=== PATIENT | female | born 1940 | race Caucasian/White ===

== ENCOUNTER 2016-05-12 12:20 | Emergency (ER) | payer MEDICARE, OTHER ==
--- NOTE | 2016-05-12 12:56 | EDM.PDOC ---
ED HPI ENT - General Chief Complaint: ENT Problem Stated Complaint: choking on food Time Seen by Provider: 05/12/16 12:42 Source of Information: Reports: Patient, EMS History Limitations: Reports: No limitations - History of Present Illness INITIAL COMMENTS - FREE TEXT/NARRATIVE: Patient presents with sensation of something stuck in her throat. She was eating a piece of chicken and it got stuck. For about two minutes she couldn't speak very well, kind of raspy, but was breathing okay. Someone performed the Heimlich maneuver on her but nothing came out. When EMS arrived, she was breathing and talking okay. They had her eat a few bites of ice cream which she swallowed okay. No vomiting. She still felt like it was stuck so she was brought to ER. She now says the sensation of something stuck is gradually lessening but still not normal. The stuck feeling is at the level of the upper sternum. She is breathing and talking just fine. - Related Data Allergies/ADRs: Allergies Allergy/AdvReac Type Severity Reaction Status Date / Time No Known Drug Allergies Allergy Cannot Verified 05/12/16 12:56 Remember ED ROS ENT - Review of Systems Review Of Systems: See Below Constitutional: Denies: fever, chills, weakness HEENT: Reports: Throat pain. Denies: Throat swelling, Vertigo, Vision change Respiratory: Denies: Shortness of Breath, Wheezing, Cough, Hemoptysis Cardiovascular: Denies: Chest pain, Syncope GI/Abdominal: Reports: Difficulty swallowing (she has some difficulty swallowing bigger pieces of food and tries to make sure she takes small bites and chews well.). Denies: Abdominal pain, Nausea, Vomiting : Reports: dysuria (she felt like she urinated a small piece of stone but only hurt a few minutes, this morning). Denies: flank pain Musculoskeletal: Reports: no symptoms Skin: Denies: cyanosis, jaundice, mottled, pallor, diaphoresis Neurological: Denies: Confusion, Dizziness, Headache, Seizure, Syncope, Trouble Speaking, Change in Speech Psychiatric: Denies: Agitation, Anxiety, Confusion ED EXAM, ENT - Physical Exam Exam: See Below Exam Limited By: No limitations General Appearance: alert, WD/WN, no apparent distress Eye Exam: bilateral eye: EOMI, normal inspection, PERRL Ears: normal external exam, hearing grossly normal Nose: normal inspection, no blood Mouth/Throat: Normal inspection, Normal gums, Normal lips, Normal oropharynx. No: Bleeding, Peritonsillar mass, Pharyngeal erythema, Throat swelling, Tongue swelling Head: atraumatic, normocephalic Neck: normal inspection, supple, non-tender, full range of motion Respiratory/Chest: no respiratory distress, lungs clear, normal breath sounds, no accessory muscle use. No: crackles, rales, rhonchi, wheezing, stridor Cardiovascular: regular rate, rhythm, no murmur GI/Abdominal: normal bowel sounds, soft, non tender, no organomegaly Back: CVA tenderness (R) (mild). No: CVA tenderness (L) Extremities: pedal edema (bilat, she is supposed to get her legs up 2-3 times a day for this) Neurological: alert, oriented, normal cognition, no motor/sensory deficits Psychiatric: normal affect, normal mood Skin: Warm, Dry, Intact, Normal color, No rash Course - Vital Signs Last Recorded V/S: Last Vital Signs Temp 96.8 F 05/12/16 12:38 Pulse 76 05/12/16 12:55 Resp 16 05/12/16 12:55 BP 164/83 H 05/12/16 12:55 Pulse Ox 98 05/12/16 12:55 - Orders/Labs/Meds Labs: Laboratory Tests 05/12/16 Range/Units 13:20 Specimen Type Urinvoid Urine Color Yellow (YELLOW) Urine Appearance Slightly cloudy H (CLEAR) Urine pH 6.5 (5.0-9.0) Ur Specific [place] 1.010 (1.005-1.030) Urine Protein Negative (NEGATIVE) mg/dL Urine Glucose (UA) Negative (NEGATIVE) mg/dL Urine Ketones Negative (NEGATIVE) mg/dL Urine Occult Blood Trace-intact H (NEGATIVE) Urine Nitrite Positive H (NEGATIVE) Urine Bilirubin Negative (NEGATIVE) Urine Urobilinogen 0.2 (0.2-1.0) E.U./dL Ur Leukocyte Esterase Small H (NEGATIVE) Urine RBC 0-5 /HPF Urine WBC 5-10 H /HPF Ur Epithelial Cells Occasional /LPF Amorphous Sediment Moderate H (0/HPF) /HPF Urine Bacteria Few (NONE TO FEW) /HPF - Re-Assessments/Exams Free Text/Narrative Re-Assessment/Exam: 05/12/16 13:03 Patient is stable with no noisy or raspy breathing. She drinks water for us okay. 05/12/16 13:11 She is eating apple sauce now without difficulty; she says it still feels a little funny in her throat. 05/12/16 14:00 Patient is comfortable but with slight throat discomfort. Eating and drinking okay. UA shows UTI; we discussed findings and treatment plan. Pt discharged in stable condition. Departure - Departure Time of Disposition: 14:01 Disposition: Home, Self-Care 01 Condition: good Clinical Impression: UTI (urinary tract infection) Qualifiers: Urinary tract infection type: site unspecified Hematuria presence: without hematuria Qualified Code(s): N39.0 - Urinary tract infection, site not specified Dysphagia Qualifiers: Dysphagia type: unspecified Qualified Code(s): R13.10 - Dysphagia, unspecified Forms: ED Department Discharge Additional Instructions: 1. Take the Cipro as directed. 2. Follow up with your PCP in 7-10 days for recheck; sooner if worsening. 3. Recheck immediately if any problems with breathing or choking.
[2016-05-12 15:29] VITALS: BP 164/82
== END 2016-05-12 14:25 | disposition home or self-care (01) ==
LOC: KA.ED 12:20
DX: N39.0 Urinary tract infection, site not specified (principal); R13.10 Dysphagia, unspecified
CPT/HCPCS: 81001; 87086; 87088; 87186; 99283; 99284

== ENCOUNTER 2016-08-24 04:55 | Emergency (ER) | payer MEDICARE, OTHER ==
[2016-08-24 05:06] VITALS: BP 135/49
--- NOTE | 2016-08-24 05:43 | EDM.PDOC ---
ED HPI GENERAL MEDICAL PROBLEM - General Chief Complaint: Lower Extremity Injury/Pain Stated Complaint: fall Time Seen by Provider: 08/24/16 05:26 Source of Information: Reports: Patient History Limitations: Reports: No Limitations - History of Present Illness INITIAL COMMENTS - FREE TEXT/NARRATIVE: Patient presents via ambulance with pain at left hip and low back. She couldn' t sleep and was up to get a cup of tea and fell in her kitchen. She thinks she just lost her balance but isn't lightheaded. She didn't hit her head, no LOC or vision change. She fell mostly on her back. She couldn't get up so called an ambulance. When they helped her up she had this pain so they thought she should probably get it checked out. She was able to walk with some help. She tells me she does have an old tailbone injury that still hurts sometimes. - Related Data Allergies Allergy/AdvReac Type Severity Reaction Status Date / Time Penicillins Allergy Cannot Verified 08/24/16 05:00 Remember Home Meds: Home Meds Aspirin 81 mg PO BRK 05/12/16 [History] Calcium Carbonate/Vitamin D3 [Calcium 600 + Vit D 200] 2 each PO DAILY 05/12/16 [History] Cholecalciferol (Vitamin D3) [Vitamin D3] 3,000 units PO DAILY 05/12/16 [History ] Docusate Sodium [Colace] 100 mg PO DAILY 05/12/16 [History] L.acid/L.casei/B.bif/B.leticia/Fos [Probiotic Blend Capsule] 1 cap PO DAILY [History] Losartan [Cozaar] 50 mg PO DAILY 05/12/16 [History] Omeprazole 20 mg PO BID 05/12/16 [History] Simvastatin [Zocor] 40 mg PO BEDTIME 05/12/16 [History] Acetaminophen [Tylenol Extra Strength] 1 tab PO Q8H PRN 08/24/16 [History] Calcium Carbonate [Tums] 200 mg PO ASDIRECTED PRN 08/24/16 [History] Dextromethorphan HBr [Tussin Cough] 15 mg PO ASDIRECTED PRN 08/24/16 [History] Nitroglycerin 0.4 mg SL Q5M PRN 08/24/16 [History] Social & Family History - Tobacco Use Smoking Status *Q: Never Smoker Second Hand Smoke Exposure: No - Caffeine Use Caffeine Use: Reports: Tea Other Caffeine Use: 2-3 drinks/day - Recreational Drug Use Recreational Drug Use: No Review of Systems - Review of Systems Review Of Systems: See Below Constitutional: Denies: Chills, Fever, Weakness Eyes: Denies: Vision Change Ears: Denies: Dizziness Nose: Denies: Epistaxis Mouth/Throat: Denies: Painful Swallowing Respiratory: Denies: Shortness of Breath, Cough Cardiovascular: Denies: Chest Pain, Lightheadedness, Syncope GI/Abdominal: Denies: Abdominal Pain, Nausea, Vomiting Genitourinary: Reports: Dysuria (the past couple days). Denies: Incontinence Musculoskeletal: Reports: Back Pain (low). Denies: Neck Pain, Shoulder Pain, Arm Pain, Hand Pain, Leg Pain, Foot Pain Skin: Denies: Cyanosis, Jaundice, Mottled, Pallor, Diaphoresis Neurological: Reports: Difficulty Walking (chronic; uses cane). Denies: Confusion, Dizziness, Headache, Seizure, Syncope, Trouble Speaking Psychiatric: Denies: Confusion ED EXAM, GENERAL - Physical Exam Exam: See Below Exam Limited By: No Limitations General Appearance: Alert, WD/WN, No Apparent Distress Eye Exam: Bilateral Eye: EOMI, Normal Inspection, PERRL Ears: Normal External Exam, Normal Canal, Hearing Grossly Normal, Normal TMs Nose: Normal Inspection, No Blood Throat/Mouth: Normal Inspection, Normal Lips, Normal Voice, No Airway Compromise Head: Atraumatic, Normocephalic Neck: Normal Inspection, Supple, Non-Tender, Full Range of Motion Respiratory/Chest: No Respiratory Distress, Lungs Clear, Normal Breath Sounds, No Accessory Muscle Use, Chest Non-Tender Cardiovascular: Regular Rate, Rhythm, No Murmur GI/Abdominal: Normal Bowel Sounds, Soft, No Organomegaly, Pelvis Stable, Tender (low/suprapubic) Back Exam: Paraspinal Tenderness (lumbar), Vertebral Tenderness (lumbosacral). No: CVA Tenderness (L), CVA Tenderness (R) Extremities: Normal Inspection, Normal Range of Motion Neurological: Alert, Oriented, CN II-XII Intact, Normal Cognition, No Motor/ Sensory Deficits Psychiatric: Normal Affect, Normal Mood Skin Exam: Warm, Dry, Intact, Normal Color, No Rash Course - Vital Signs Last Recorded V/S: Last Vital Signs Temp 98 F 08/24/16 05:03 Pulse 67 08/24/16 05:03 Resp 18 08/24/16 05:03 BP 135/49 L 08/24/16 05:03 Pulse Ox 97 08/24/16 05:03 - Orders/Labs/Meds Orders: Active Orders 24 hr Category Date Time Status Hip Min 2V or 3V w Pelvis Lt [CR] Stat Exams 08/24/16 05:12 Ordered Lumbar Spine 2 or 3V [CR] Stat Exams 08/24/16 05:33 Ordered - Re-Assessments/Exams Free Text/Narrative Re-Assessment/Exam: 08/24/16 06:05 Patient back from xray and feeling okay. Xrays look okay to me and will get rad report. 08/24/16 06:52 Xray report states no acute fracture. UA does not indicate a UTI but will culture to be sure. Discussed findings and plan with patient and she is discharged in stable condition. Departure - Departure Time of Disposition: 06:45 Disposition: Home, Self-Care 01 Condition: Good Clinical Impression: Low back pain Qualifiers: Chronicity: acute Back pain laterality: left Sciatica presence: without sciatica Qualified Code(s): M54.5 - Low back pain - Discharge Information Forms: ED Department Discharge Additional Instructions: 1. Use precautions to avoid falling. 2. Follow up with your PCP in 2-3 days. 3. We are culturing the urine and someone will let you know if it indicates a UTI. - My Orders Last 24 Hours: My Active Orders 08/24/16 05:12 Hip Min 2V or 3V w Pelvis Lt [CR] Stat 08/24/16 05:33 Lumbar Spine 2 or 3V [CR] Stat - Assessment/Plan Last 24 Hours: My Active Orders 08/24/16 05:12 Hip Min 2V or 3V w Pelvis Lt [CR] Stat 08/24/16 05:33 Lumbar Spine 2 or 3V [CR] Stat
== END 2016-08-24 07:23 | disposition home or self-care (01) ==
LOC: KA.ED 04:55
DX: M54.5 Low back pain (principal); Z88.0 Allergy status to penicillin; Z79.82 Long term (current) use of aspirin; Z79.899 Other long term (current) drug therapy
CPT/HCPCS: 72100; 81001; 87086; 99283; 99284

== ENCOUNTER 2016-09-03 19:30 | Emergency (ER) | payer MEDICARE, OTHER ==
--- NOTE | 2016-09-03 19:57 | EDM.PDOC ---
ED HPI GENERAL MEDICAL PROBLEM - General Chief Complaint: General Stated Complaint: FALL Time Seen by Provider: 09/03/16 19:34 Source of Information: Reports: Patient, EMS, EMS Notes Reviewed History Limitations: Reports: No Limitations - History of Present Illness INITIAL COMMENTS - FREE TEXT/NARRATIVE: PT STATES SHE FELL ASLEPP AND FELL OUT OF CHAIR ONTO RUG FLOOR. DIDN NOT FEEL ANY PAIN BUT WAS AFRAID TO MOVE AND GET UP SO CALLED 911. [facility] RESPONDED AND TRANSPORTED PT HERE. NO SIGNS OF TRAUMA. DENIES LOC, HEAD INJURY, OR ANY DIFFERENT PAIN THAN USUAL. Onset: Today Duration: Hour(s): Location: Reports: Face, Back Quality: Reports: Same as Previous Episode Severity: Mild Improves with: Reports: None Worsens with: Reports: None Associated Symptoms: Reports: No Other Symptoms - Related Data Allergies Allergy/AdvReac Type Severity Reaction Status Date / Time Penicillins Allergy Cannot Verified 09/03/16 19:35 Remember Home Meds: Home Meds Aspirin 81 mg PO BRK 05/12/16 [History] Calcium Carbonate/Vitamin D3 [Calcium 600 + Vit D 200] 2 each PO DAILY 05/12/16 [History] Cholecalciferol (Vitamin D3) [Vitamin D3] 3,000 units PO DAILY 05/12/16 [History ] Docusate Sodium [Colace] 100 mg PO DAILY 05/12/16 [History] L.acid/L.casei/B.bif/B.leticia/Fos [Probiotic Blend Capsule] 1 cap PO DAILY [History] Losartan [Cozaar] 50 mg PO DAILY 05/12/16 [History] Omeprazole 20 mg PO BID 05/12/16 [History] Simvastatin [Zocor] 40 mg PO BEDTIME 05/12/16 [History] Acetaminophen [Tylenol Extra Strength] 1 tab PO Q8H PRN 08/24/16 [History] Calcium Carbonate [Tums] 200 mg PO ASDIRECTED PRN 08/24/16 [History] Dextromethorphan HBr [Tussin Cough] 15 mg PO ASDIRECTED PRN 08/24/16 [History] Nitroglycerin 0.4 mg SL Q5M PRN 08/24/16 [History] Past Medical History HEENT History: Reports: Cataract, Impaired Vision Cardiovascular History: Reports: High Cholesterol, Hypertension Respiratory History: Reports: Bronchitis, Recurrent Gastrointestinal History: Reports: GERD Genitourinary History: Reports: Other (See Below) Other Genitourinary History: prolapsed bladder Musculoskeletal History: Reports: Osteoarthritis, Other (See Below) Other Musculoskeletal History: L shoulder ?torn cuff. walker use. knee pain - Infectious Disease History Infectious Disease History: Reports: Chicken Pox - Past Surgical History GI Surgical History: Reports: Appendectomy, Cholecystectomy, Colonoscopy Female Surgical History: Reports: Hysterectomy, Salpingo-Oophorectomy Social & Family History - Tobacco Use Smoking Status *Q: Never Smoker Second Hand Smoke Exposure: No - Caffeine Use Caffeine Use: Reports: Tea Other Caffeine Use: 2-3 drinks/day - Recreational Drug Use Recreational Drug Use: No ED ROS GENERAL - Review of Systems Review Of Systems: ROS reveals no pertinent complaints other than HPI. Constitutional: Reports: No Symptoms HEENT: Reports: No Symptoms Respiratory: Reports: No Symptoms Cardiovascular: Reports: No Symptoms Endocrine: Reports: No Symptoms GI/Abdominal: Reports: No Symptoms : Reports: No Symptoms Musculoskeletal: Reports: Back Pain (of chronic nature) Skin: Reports: No Symptoms Neurological: Reports: No Symptoms Psychiatric: Reports: No Symptoms Hematologic/Lymphatic: Reports: No Symptoms Immunologic: Reports: No Symptoms ED EXAM, GENERAL - Physical Exam Exam: See Below Free Text/Narrative:: NO SIGNS OF TRAUMA Exam Limited By: No Limitations General Appearance: Alert, WD/WN, No Apparent Distress Eye Exam: Bilateral Eye: Normal Inspection Ears: Normal External Exam Nose: Normal Inspection, No Blood Throat/Mouth: Normal Inspection, Normal Oropharynx, No Airway Compromise Head: Atraumatic, Normocephalic Neck: Normal Inspection, Supple, Non-Tender, Full Range of Motion Respiratory/Chest: No Respiratory Distress, Lungs Clear, Normal Breath Sounds, No Accessory Muscle Use, Chest Non-Tender Cardiovascular: Regular Rate, Rhythm, No Murmur GI/Abdominal: Normal Bowel Sounds, Soft, Non-Tender Back Exam: Decreased Range of Motion (OF CHRONIC NATURE) Extremities: Normal Inspection, Non-Tender Neurological: Alert, Oriented, CN II-XII Intact, Normal Cognition, No Motor/ Sensory Deficits Psychiatric: Normal Affect, Normal Mood Skin Exam: Warm, Dry, Intact, Normal Color, No Rash Lymphatic: No Adenopathy Course - Vital Signs Last Recorded V/S: Last Vital Signs Temp 97.9 F 09/03/16 19:37 Pulse 76 07/28/17 19:37 Resp 18 09/03/16 19:37 BP 145/56 H 09/03/16 19:37 Pulse Ox 97 09/03/16 19:37 - Orders/Labs/Meds Orders: Active Orders 24 hr Category Date Time Status Accu Check [Blood Glucose Check, Bedside] [RC] ONETIME Care 09/03/16 19:48 Ordered Labs: Laboratory Tests 09/03/16 Range/Units 19:43 POC Glucose 106 (74-106) mg/dl - Re-Assessments/Exams Free Text/Narrative Re-Assessment/Exam: 09/03/16 19:57 PT AFEBRILE, NONTOXIC APPEARING, VSS. [facility] WILL TRANSPORT HOME Departure - Departure Time of Disposition: 19:58 Disposition: Home, Self-Care 01 Condition: Good Clinical Impression: Low back pain Qualifiers: Chronicity: chronic Back pain laterality: bilateral Sciatica presence: without sciatica Qualified Code(s): M54.5 - Low back pain; G89.29 - Other chronic pain Fall from chair Qualifiers: Encounter type: initial encounter Qualified Code(s): W07.XXXA - Fall from chair , initial encounter - Discharge Information Instructions: Fall Prevention in the Home, [id number], Chronic Back Pain Additional Instructions: FOLLOW UP WITH YOUR PCP IN NEXT 2-3 DAYS. RETURN TO ER SOONER IF SYMPTOMS CONTINUE - My Orders Last 24 Hours: My Active Orders 09/03/16 19:48 Accu Check [Blood Glucose Check, Bedside] [RC] ONETIME - Assessment/Plan Last 24 Hours: My Active Orders 09/03/16 19:48 Accu Check [Blood Glucose Check, Bedside] [RC] ONETIME Assessment:: FALL Plan: F/U WITH PCP
[2016-09-04 01:16] VITALS: BP 145/56
== END 2016-09-03 20:05 | disposition home or self-care (01) ==
LOC: KA.ED 19:30
DX: M54.5 Low back pain (principal); G89.29 Other chronic pain; I10 Essential (primary) hypertension; E78.00 Pure hypercholesterolemia, unspecified; K21.9 Gastro-esophageal reflux disease without esophagitis; M19.90 Unspecified osteoarthritis, unspecified site; Z90.49 Acquired absence of other specified parts of digestive tract; Z90.710 Acquired absence of both cervix and uterus; Z88.0 Allergy status to penicillin; Z79.82 Long term (current) use of aspirin; W07.XXXA Fall from chair, initial encounter
CPT/HCPCS: 82962; 99283

== ENCOUNTER 2016-11-28 21:55 | Emergency (ER) | payer MEDICARE, OTHER ==
[2016-11-28] MEDS ORDERED: GI Cocktail 45 ML BOTTLE PO ONE ×2 (22:10→22:26)
[2016-11-28] MEDS ORDERED: GI Cocktail 45 ML BOTTLE ONE ×2 (22:26→23:18)
--- NOTE | 2016-11-28 22:40 | EDM.PDOC ---
ED HPI GENERAL MEDICAL PROBLEM - General Chief Complaint: General Stated Complaint: PILL STUCK IN THROAT Time Seen by Provider: 11/28/16 22:15 Source of Information: Reports: Patient History Limitations: Reports: No Limitations - History of Present Illness INITIAL COMMENTS - FREE TEXT/NARRATIVE: 76 YO CAPRICE presents to ER by EMS after taking her calcium pill tonight and having the sensation that it is still stuck in her throat. Pt points to her sternal notch and states that this is where she feels the discomfort. Pt denies any shortness of breath, Pt denies any chest pain, pt denies any dysphagia. No episodes of nausea/vomiting. Onset Date: 11/28/16 Onset Time: 21:00 Location: Reports: Neck Quality: Reports: Other (scratchy) Severity: Mild Improves with: Reports: None Worsens with: Reports: None Associated Symptoms: Reports: No Other Symptoms - Related Data Allergies Allergy/AdvReac Type Severity Reaction Status Date / Time Penicillins Allergy Cannot Verified 11/28/16 22:45 Remember Home Meds: Home Meds Aspirin 81 mg PO BRK 05/12/16 [History] Calcium Carbonate/Vitamin D3 [Calcium 600 + Vit D 200] 2 each PO DAILY 05/12/16 [History] Cholecalciferol (Vitamin D3) [Vitamin D3] 3,000 units PO DAILY 05/12/16 [History ] Docusate Sodium [Colace] 100 mg PO DAILY 05/12/16 [History] L.acid/L.casei/B.bif/B.leticia/Fos [Probiotic Blend Capsule] 1 cap PO DAILY [History] Losartan [Cozaar] 50 mg PO DAILY 05/12/16 [History] Omeprazole 20 mg PO BID 05/12/16 [History] Simvastatin [Zocor] 40 mg PO BEDTIME 05/12/16 [History] Acetaminophen [Tylenol Extra Strength] 1 tab PO Q8H PRN 08/24/16 [History] Calcium Carbonate [Tums] 200 mg PO ASDIRECTED PRN 08/24/16 [History] Dextromethorphan HBr [Tussin Cough] 15 mg PO ASDIRECTED PRN 08/24/16 [History] Nitroglycerin 0.4 mg SL Q5M PRN 08/24/16 [History] GI Cocktail 5 ml PO ONETIME #120 bottle 11/28/16 [Rx] Past Medical History HEENT History: Reports: Cataract, Impaired Vision Cardiovascular History: Reports: High Cholesterol, Hypertension Respiratory History: Reports: Bronchitis, Recurrent Gastrointestinal History: Reports: GERD Genitourinary History: Reports: Other (See Below) Other Genitourinary History: prolapsed bladder Musculoskeletal History: Reports: Osteoarthritis, Other (See Below) Other Musculoskeletal History: L shoulder ?torn cuff. walker use. knee pain - Infectious Disease History Infectious Disease History: Reports: Chicken Pox - Past Surgical History GI Surgical History: Reports: Appendectomy, Cholecystectomy, Colonoscopy Female Surgical History: Reports: Hysterectomy, Salpingo-Oophorectomy Social & Family History - Tobacco Use Smoking Status *Q: Never Smoker Second Hand Smoke Exposure: No - Caffeine Use Caffeine Use: Reports: Tea Other Caffeine Use: 2-3 drinks/day - Recreational Drug Use Recreational Drug Use: No ED ROS GENERAL - Review of Systems Review Of Systems: See Below Constitutional: Reports: No Symptoms HEENT: Reports: Throat Pain Respiratory: Reports: No Symptoms Cardiovascular: Reports: No Symptoms Endocrine: Reports: No Symptoms GI/Abdominal: Reports: No Symptoms : Reports: No Symptoms Musculoskeletal: Reports: No Symptoms Skin: Reports: No Symptoms Neurological: Reports: No Symptoms Psychiatric: Reports: No Symptoms Hematologic/Lymphatic: Reports: No Symptoms Immunologic: Reports: No Symptoms ED EXAM, GENERAL - Physical Exam Exam: See Below Exam Limited By: No Limitations General Appearance: Alert, WD/WN, No Apparent Distress Ears: Normal External Exam, Normal Canal, Hearing Grossly Normal, Normal TMs Nose: Normal Inspection, Normal Mucosa, No Blood Throat/Mouth: Normal Inspection, Normal Lips, Normal Teeth, Normal Gums, Normal Oropharynx, Normal Voice, No Airway Compromise Head: Atraumatic, Normocephalic Neck: Normal Inspection, Supple, Non-Tender, Full Range of Motion Respiratory/Chest: No Respiratory Distress, Lungs Clear, Normal Breath Sounds, No Accessory Muscle Use, Chest Non-Tender Cardiovascular: Normal Peripheral Pulses, Regular Rate, Rhythm, No Edema, No Gallop, No JVD, No Murmur, No Rub GI/Abdominal: Normal Bowel Sounds, Soft, Non-Tender, No Organomegaly, No Distention, No Abnormal Bruit, No Mass Back Exam: Normal Inspection, Full Range of Motion, NT Extremities: Normal Inspection, Normal Range of Motion, Non-Tender, Normal Capillary Refill, No Pedal Edema Neurological: Alert, Oriented, CN II-XII Intact, Normal Cognition, Normal Gait, Normal Reflexes, No Motor/Sensory Deficits Psychiatric: Normal Affect, Normal Mood Skin Exam: Warm, Dry, Intact, Normal Color, No Rash Lymphatic: No Adenopathy Course - Orders/Labs/Meds Meds: Medications Discontinued Medications Generic Name Dose Route Start Last Admin Trade Name Freq PRN Reason Stop Dose Admin Al Hydroxide/Mg Hydroxide Confirm 11/28/16 22:26 Gi Cocktail Administered 11/28/16 22:27 Dose 45 ml .ROUTE .STK-MED ONE Departure - Departure Time of Disposition: 22:47 Disposition: Home, Self-Care 01 Condition: Good Clinical Impression: Sensation of foreign body in esophagus - Discharge Information Prescriptions: GI Cocktail 5 ml PO ONETIME #120 bottle Instructions: Swallowed Foreign Body, Adult, [id number] Referrals: PCP,Not In Area [Primary Care Provider] - - Assessment/Plan Assessment:: 1. foreign body sensation in throat- Pt reports symptoms resolved Plan: 1. discharge home 2. gi cocktail with viscous lidocaine PRN 3. follow up with PCP for further evaluation and treatment 4. return to ER for worsening symptoms
[2016-11-28 22:45] VITALS: BP 151/81
== END 2016-11-28 23:30 | disposition home or self-care (01) ==
LOC: KA.ED 21:55
DX: R09.89 Other specified symptoms and signs involving the circulatory and respiratory systems (principal); I10 Essential (primary) hypertension; Z88.0 Allergy status to penicillin; Z79.82 Long term (current) use of aspirin; Z79.899 Other long term (current) drug therapy
CPT/HCPCS: 99283; A9270

== ENCOUNTER 2016-12-09 06:26 | Emergency (ER) | payer MEDICARE, OTHER ==
[2016-12-09 07:02] VITALS: BP 135/77
--- NOTE | 2016-12-09 07:32 | EDM.PDOC ---
ED HPI GENERAL MEDICAL PROBLEM - General Chief Complaint: Abdominal Pain Stated Complaint: Abdominal Pain Time Seen by Provider: 12/09/16 07:25 Source of Information: Reports: Patient History Limitations: Reports: No Limitations - History of Present Illness INITIAL COMMENTS - FREE TEXT/NARRATIVE: Patient is a 76-year-old female who presents to the emergency department today via EMS for complaint of lower abdominal pain. Pain was said to begin yesterday about noon following her consuming a hamburger. The patient thinks it might be her prolapsed uterus, however, she does have a history of a hysterectomy. She describes minimal urinary incontinence with cough, and suspect she is speaking of her bladder. Patient denies fever, nausea, vomiting , diarrhea, any fall or trauma, chest pain, or shortness of breath. Onset: Gradual Onset Date: 12/08/16 Duration: Day(s): Location: Reports: Abdomen Quality: Reports: Pressure Severity: Mild Improves with: Reports: None Worsens with: Reports: None Associated Symptoms: Reports: No Other Symptoms Right Lower Abdominal Pain Score (Numeric/FACES): 3 - Related Data Allergies Allergy/AdvReac Type Severity Reaction Status Date / Time Penicillins Allergy Cannot Verified 12/09/16 07:04 Remember Home Meds: Home Meds Aspirin 81 mg PO BRK 05/12/16 [History] Calcium Carbonate/Vitamin D3 [Calcium 600 + Vit D 200] 2 each PO DAILY 05/12/16 [History] Cholecalciferol (Vitamin D3) [Vitamin D3] 3,000 units PO DAILY 05/12/16 [History ] Docusate Sodium [Colace] 100 mg PO DAILY PRN 05/12/16 [History] L.acid/L.casei/B.bif/B.leticia/Fos [Probiotic Blend Capsule] 1 cap PO DAILY [History] Losartan [Cozaar] 50 mg PO DAILY 05/12/16 [History] Omeprazole 20 mg PO BID 05/12/16 [History] Simvastatin [Zocor] 40 mg PO BEDTIME 05/12/16 [History] Acetaminophen [Tylenol Extra Strength] 1 tab PO Q8H PRN 08/24/16 [History] Calcium Carbonate [Tums] 200 mg PO ASDIRECTED PRN 08/24/16 [History] Nitroglycerin 0.4 mg SL Q5M PRN 08/24/16 [History] Past Medical History HEENT History: Reports: Cataract, Epistaxis, Impaired Vision Cardiovascular History: Reports: Angina, High Cholesterol, Hypertension Respiratory History: Reports: Bronchitis, Recurrent Gastrointestinal History: Reports: Diverticulosis, GERD Genitourinary History: Reports: Other (See Below) Other Genitourinary History: prolapsed bladder Musculoskeletal History: Reports: Osteoarthritis, Other (See Below) Other Musculoskeletal History: L shoulder ?torn cuff. walker use. knee pain Endocrine/Metabolic History: Reports: Diabetes, Type II - Infectious Disease History Infectious Disease History: Reports: Chicken Pox, Mumps - Past Surgical History HEENT Surgical History: Reports: Cataract Surgery GI Surgical History: Reports: Appendectomy, Cholecystectomy, Colonoscopy Female Surgical History: Reports: Hysterectomy, Salpingo-Oophorectomy Social & Family History - Family History Family Medical History: Noncontributory - Tobacco Use Smoking Status *Q: Never Smoker Second Hand Smoke Exposure: No - Caffeine Use Caffeine Use: Reports: Tea Other Caffeine Use: 2-3 drinks/day - Recreational Drug Use Recreational Drug Use: No ED ROS GENERAL - Review of Systems Review Of Systems: ROS reveals no pertinent complaints other than HPI. Constitutional: Reports: No Symptoms HEENT: Reports: No Symptoms Respiratory: Reports: No Symptoms Cardiovascular: Reports: No Symptoms Endocrine: Reports: No Symptoms GI/Abdominal: Reports: Abdominal Pain : Reports: Incontinence Musculoskeletal: Reports: No Symptoms Skin: Reports: No Symptoms Neurological: Reports: No Symptoms Psychiatric: Reports: No Symptoms Hematologic/Lymphatic: Reports: No Symptoms Immunologic: Reports: No Symptoms ED EXAM, GI/ABD - Physical Exam Exam: See Below Exam Limited By: No Limitations General Appearance: Alert, WD/WN, No Apparent Distress Throat/Mouth: Normal Inspection, Normal Oropharynx, No Airway Compromise Head: Atraumatic, Normocephalic Respiratory/Chest: No Respiratory Distress, Lungs Clear, Normal Breath Sounds, No Accessory Muscle Use, Chest Non-Tender Cardiovascular: Regular Rate, Rhythm, No Murmur GI/Abdominal Exam: Normal Bowel Sounds, Soft, Tender (minimally suprapubic). No : Guarding, Rigid, Rebound (Female) Exam: Other (Patient has prolapsed tissue extending out of vagina when she is a squatting position on the urinal. Complete reduction when she lies flat.) Back Exam: Normal Inspection. No: CVA Tenderness (L), CVA Tenderness (R) Extremities: Pedal Edema (of chronic nature) Neurological: Alert, Oriented, Normal Cognition Psychiatric: Normal Affect, Normal Mood Skin Exam: Warm, Dry, Intact, Normal Color, No Rash Lymphatic: No Adenopathy Course - Vital Signs Last Recorded V/S: Last Vital Signs Temp 99.0 F 12/09/16 06:57 Pulse 77 12/09/16 06:57 Resp 18 12/09/16 06:57 BP 135/77 12/09/16 06:57 Pulse Ox 96 12/09/16 06:57 - Orders/Labs/Meds Orders: Active Orders 24 hr Category Date Time Status CBC WITH AUTO DIFF [HEME] Stat Lab 12/09/16 07:25 Ordered COMPREHENSIVE METABOLIC PN,CMP [CHEM] Stat Lab 12/09/16 07:25 Ordered CULTURE URINE [RM] Stat Lab 12/09/16 07:25 Uncollected UA W/MICROSCOPIC [URIN] Stat Lab 12/09/16 07:25 Uncollected - Re-Assessments/Exams Free Text/Narrative Re-Assessment/Exam: 12/09/16 08:10 Patient afebrile, nontoxic appearing, vital signs stable. In depth discussion with the patient to emphasize the need to keep herself clean, change clothes and incontinence pad and care for self better. Patient states that she's been told by several providers that she may be acquiring fci care at this point. She is adamant about not going to a fci. Emphasize choice was hers and she needed to take better care of herself. Will have her follow-up at local clinic for recheck in 3-5 days. Departure - Departure Time of Disposition: 08:12 Disposition: Home, Self-Care 01 Condition: Good Clinical Impression: Urinary tract infection Qualifiers: Urinary tract infection type: acute cystitis Hematuria presence: without hematuria Qualified Code(s): N30.00 - Acute cystitis without hematuria Abdominal pain Qualifiers: Abdominal location: lower abdomen, unspecified Qualified Code(s): R10.30 - Lower abdominal pain, unspecified - Discharge Information Instructions: Urinary Incontinence, Urinary Tract Infection, Adult Referrals: PCP,Not In Area [Primary Care Provider] - Additional Instructions: Follow-up at the [facility] in [place] in the next 3-5 days for recheck. Return to ER sooner if symptoms continue or worsen. - My Orders Last 24 Hours: My Active Orders 12/09/16 07:25 CBC WITH AUTO DIFF [HEME] Stat COMPREHENSIVE METABOLIC PN,CMP [CHEM] Stat CULTURE URINE [RM] Stat UA W/MICROSCOPIC [URIN] Stat - Assessment/Plan Last 24 Hours: My Active Orders 12/09/16 07:25 CBC WITH AUTO DIFF [HEME] Stat COMPREHENSIVE METABOLIC PN,CMP [CHEM] Stat CULTURE URINE [RM] Stat UA W/MICROSCOPIC [URIN] Stat Assessment:: UTI Plan: Follow up at clinic in [place] in 2-3 days.
[2016-12-09 07:40] LABS: CHLORIDE,CL 104 mmol/L (98-115); SODIUM,NA 138 mmol/L (136-145)
[2016-12-09] MEDS ORDERED: cefTRIAXone 1 GM Vial IVPUSH ONE (08:06)
== END 2016-12-09 09:55 | disposition home or self-care (01) ==
LOC: KA.ED 06:26
DX: N30.00 Acute cystitis without hematuria (principal); I10 Essential (primary) hypertension; E11.9 Type 2 diabetes mellitus without complications; Z88.0 Allergy status to penicillin; Z79.82 Long term (current) use of aspirin; Z79.899 Other long term (current) drug therapy
CPT/HCPCS: 80053; 81001; 85025; 87086; 96374; 99284; J0696

== ENCOUNTER 2017-06-21 11:33 | Emergency (ER) | payer MEDICARE, OTHER ==
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
[2017-06-21 13:34] VITALS: BP 170/69
== END 2017-06-21 13:25 | disposition home or self-care (01) ==
LOC: KA.ED 11:33
DX: S16.1XXA Strain of muscle, fascia and tendon at neck level, initial encounter (principal); I10 Essential (primary) hypertension; E11.9 Type 2 diabetes mellitus without complications; Z88.0 Allergy status to penicillin; Z79.899 Other long term (current) drug therapy; V89.2XXA Person injured in unspecified motor-vehicle accident, traffic, initial encounter
CPT/HCPCS: 72040; 99284

== ENCOUNTER 2018-07-21 14:27 | Emergency (ER) | payer MEDICARE, MEDICAID ==
--- NOTE | 2018-07-21 15:04 | EDM.PDOC ---
ED HPI GENERAL MEDICAL PROBLEM - General Chief Complaint: Abdominal Pain Stated Complaint: LOWER R ABD PAIN Time Seen by Provider: 07/21/18 14:35 Source of Information: Reports: Patient, EMS History Limitations: Reports: No Limitations - History of Present Illness INITIAL COMMENTS - FREE TEXT/NARRATIVE: Patient presents from home via EMS for acute RLQ abd. pain starting this afternoon at 1330. She notes it started suddenly did not radiate, lasted for only a brief while, once EMS arrived to her house the pain has subsided. She denies any associating symptoms such as CP, SOB, symptoms, Back or flank pain , fevers, chills, or body aches. Currently her pain is 0/10 at rest. She notes being seen in [facility] where she received labs and xray for this type of pain and told her it was dehydration as the potential cause. RLQ Pain Score (Numeric/FACES): 4 - Related Data Allergies Allergy/AdvReac Type Severity Reaction Status Date / Time Penicillins Allergy Cannot Verified 07/21/18 14:57 Remember Home Meds: Home Meds Aspirin 81 mg PO BRK 05/12/16 [History] Cholecalciferol (Vitamin D3) [Vitamin D3] 3,000 units PO DAILY 05/12/16 [History ] Docusate Sodium [Colace] 100 mg PO BID PRN 05/12/16 [History] L.acid/L.casei/B.bif/B.leticia/Fos [Probiotic Blend Capsule] 1 cap PO DAILY [History] Omeprazole 20 mg PO BID 05/12/16 [History] Nitroglycerin 0.4 mg SL Q5M PRN 08/24/16 [History] Acetaminophen [Tylenol] 650 mg PO Q4H PRN 07/21/18 [History] Calcium Carbonate 500 mg PO BID 07/21/18 [History] Calcium Carbonate [Calcium] 500 mg PO ASDIRECTED PRN 07/21/18 [History] Losartan Potassium 25 mg PO DAILY 07/21/18 [History] Nystatin 1 applic TP DAILY PRN 07/21/18 [History] Nystatin [Nystatin Crm] 1 applic TOP TID PRN 07/21/18 [History] Simvastatin 20 mg PO BEDTIME 07/21/18 [History] Past Medical History HEENT History: Reports: Cataract, Epistaxis, Impaired Vision Cardiovascular History: Reports: Angina, High Cholesterol, Hypertension Respiratory History: Reports: Bronchitis, Recurrent Gastrointestinal History: Reports: Diverticulosis, GERD Genitourinary History: Reports: Other (See Below) (wwww) Other Genitourinary History: prolapsed bladder Musculoskeletal History: Reports: Osteoarthritis, Other (See Below) Other Musculoskeletal History: L shoulder ?torn cuff. walker use. knee pain Endocrine/Metabolic History: Reports: Diabetes, Type II - Infectious Disease History Infectious Disease History: Reports: Chicken Pox, Mumps - Past Surgical History HEENT Surgical History: Reports: Cataract Surgery GI Surgical History: Reports: Appendectomy, Cholecystectomy, Colonoscopy Female Surgical History: Reports: Hysterectomy, Salpingo-Oophorectomy Social & Family History - Family History Family Medical History: Noncontributory - Tobacco Use Smoking Status *Q: Never Smoker - Tobacco Core Measures Tobacco Use/Smoking Within Last 30 Days: No - Caffeine Use Caffeine Use: Reports: Tea Other Caffeine Use: 2-3 drinks/day - Alcohol Use Alcohol Use History: No - Recreational Drug Use Recreational Drug Use: No ED ROS GENERAL - Review of Systems Review Of Systems: See Below Constitutional: Reports: No Symptoms HEENT: Reports: No Symptoms Respiratory: Reports: No Symptoms Cardiovascular: Reports: No Symptoms Endocrine: Reports: No Symptoms GI/Abdominal: Reports: Abdominal Pain, Other (bowel movements regular) : Reports: No Symptoms Musculoskeletal: Reports: No Symptoms Skin: Reports: No Symptoms Neurological: Reports: No Symptoms Psychiatric: Reports: No Symptoms Hematologic/Lymphatic: Reports: No Symptoms ED EXAM, GI/ABD - Physical Exam Exam: See Below Exam Limited By: No Limitations General Appearance: Alert, WD/WN, No Apparent Distress Ears: Normal External Exam, Normal Canal Nose: Normal Inspection, Normal Mucosa Throat/Mouth: Normal Inspection, Normal Lips, Normal Oropharynx Head: Atraumatic, Normocephalic Neck: Normal Inspection, Supple, Non-Tender, Full Range of Motion Respiratory/Chest: No Respiratory Distress, Lungs Clear, Normal Breath Sounds Cardiovascular: Normal Peripheral Pulses, Regular Rate, Rhythm GI/Abdominal Exam: Normal Bowel Sounds, No Organomegaly, No Distention, No Mass , Tender, Other (TTP to the RLQ, zero pain at rest.) Back Exam: Normal Inspection, Full Range of Motion Extremities: Normal Inspection, Normal Range of Motion, Non-Tender, Normal Capillary Refill Neurological: Alert, Oriented, No Motor/Sensory Deficits Psychiatric: Normal Affect, Normal Mood Skin Exam: Warm, Dry, Intact, No Rash Lymphatic: No Adenopathy Course - Vital Signs Text/Narrative:: abdominal pain work up, started acutely at 1:30, has had this same pain in the past, she told the doctors blamed it on dehydration as she does not drink much water, patient is very comfortable on arrival to ED, hold off on strong pain meds, 0/10 pain, but pain is reproducible on exam exquisitely to the RLQ no radiation, describes it as sharp. No associating factors. BM normal large amount last night, denies symptoms, CP, SOB, back pain, fever, c/n/v/d. abdominal labs including UA pending. she notes having xray done in the past, xray results obtained from 07/08/18. 1545: labs WNL, WBC normal, no anemia, Cr normal, Lipase normal, lytes normal, UA negative besides trace blood (cath was obtained by straight cath UA patient was unable to void. due to her repeat visit for the same complaint, severe acute onset pain, will obtain CT scan to look for diverticulitis other acute abdominal processes abscess, hernia due to multi. previous abd surgeries such as (appendectomy, cholecystectomy, hysterectomy), obstruction, neoplasm, pancreatitis, ischemic bowel, renal calculi ( due to the fact pain was short and severe RLQ and resolved, may have passed calculi or have more stones in renal pelvis. Other differentials note likely: mesenteric ischemia no hx of afib, HR is regular, on ASA. 500 ml bolus ordered, no hx of CHF, to help with contrast, patient notes not drinking adequate amounts of water. she continues to be pain free, no symptoms during ED visit, she is even singing in the room random songs. 1430 Reason for the delay in CT scan, the machine had to be restarted. Patient is lying in bed comfortable, no complaints. 1516: Ct results show uncomplicated sigmoid diverticulitis, normal WBC, neg labs , pain is controlled, no fevers or peritoneal signs, outpatient PO abx and close follow up in the clinic with her PCP on tuesday, or return if pain worsens throughout the weekend. cipro and flagyl scripts filled until she get can get them filled tuesday evening , she will have enough with today until tuesday evening. FDA black box warning given with cipro to patient, she understands. course of cipro 500 mg BID for one week and flagyl 500 mg TID for one week. Last Recorded V/S: Last Vital Signs Temp 97.9 F 07/21/18 14:30 Pulse 81 07/21/18 15:39 Resp 16 07/21/18 15:39 BP 146/85 H 07/21/18 15:39 Pulse Ox 98 07/21/18 15:39 - Orders/Labs/Meds Labs: Laboratory Tests 07/21/18 07/21/18 07/21/18 Range/Units 14:50 14:50 15:19 WBC 5.90 (5.00-10.00) 10^3/uL RBC 4.25 (3.80-5.50) 10^6/uL Hgb 12.4 (12.0-16.0) g/dL Hct 37.9 (37.0-47.0) % MCV 89.2 D (82.0-92.0) fL MCH 29.2 (27.0-31.0) pg MCHC 32.7 (32.0-36.0) g/dL RDW 13.8 (11.5-14.5) % Plt Count 301 (150-400) 10^3/uL MPV 10.0 (7.4-10.4) fL Immature Gran % (Auto) 0.3 (0.0-5.0) % Neut % (Auto) 66.2 (50.0-70.0) % Lymph % (Auto) 20.0 (20.0-40.0) % Knott % (Auto) 10.3 H (2.0-8.0) % Eos % (Auto) 2.7 (1.0-3.0) % Baso % (Auto) 0.5 (0.0-1.0) % Immature Gran # (Auto) 0.02 (0.00-0.50) 10^3/uL Neut # (Auto) 3.90 (2.50-7.00) 10^3/uL Lymph # (Auto) 1.18 (1.00-4.00) 10^3/uL Knott # (Auto) 0.61 (0.10-0.80) 10^3/uL Eos # (Auto) 0.16 (0.10-0.30) 10^3/uL Baso # (Auto) 0.03 (0.00-0.10) 10^3/uL Sodium 138 (136-145) mmol/L Potassium 4.7 (3.3-5.3) mmol/L Chloride 103 (98-115) mmol/L Carbon Dioxide 25.6 (21.0-32.0) mmol/L Anion Gap 14.1 (5-15) mmol/L BUN 23 (6-25) mg/dL Creatinine 0.80 (0.51-1.17) mg/dL Est Cr Clr Drug Dosing 45.84 mL/min Estimated GFR (MDRD) > 60 mL/min Glucose 116 H (75 - 99) mg/dL Calcium 9.9 (8.7-10.3) mg/dL Total Bilirubin 0.2 (0.2-1.0) mg/dL AST 29 (15-37) U/L ALT 16 (12-78) U/L Alkaline Phosphatase 114 (46-116) IU/L C-Reactive Protein < 0.2 (0.0-0.9) mg/dL Total Protein 7.5 (6.4-8.2) g/dL Albumin 3.51 (3.00-4.80) g/dL Lipase 180 (73-393) U/L Specimen Type Urincath Urine Color Yellow (YELLOW) Urine Appearance Slightly cloudy H (CLEAR) Urine pH 5.5 (5.0-9.0) Ur Specific [place] 1.015 (1.005-1.030) Urine Protein Negative (NEGATIVE) mg/dL Urine Glucose (UA) Negative (NEGATIVE) mg/dL Urine Ketones Negative (NEGATIVE) mg/dL Urine Occult Blood Trace-lysed H (NEGATIVE) Urine Nitrite Negative (NEGATIVE) Urine Bilirubin Negative (NEGATIVE) Urine Urobilinogen 0.2 (0.2-1.0) E.U./dL Ur Leukocyte Esterase Negative (NEGATIVE) Urine RBC 0-5 (0-5) /HPF Urine WBC 0-5 (0-5) /HPF Ur Epithelial Cells Few /LPF Urine Bacteria Few (NONE TO FEW) /HPF Meds: Medications Discontinued Medications Generic Name Dose Route Start Last Admin Trade Name Freq PRN Reason Stop Dose Admin Ciprofloxacin 2,000 mg 07/21/18 18:05 07/21/18 18:15 Ciprofloxacin Hcl PO 07/21/18 18:06 Not Given ONETIME ONE Sodium Chloride 50 mls @ 200 mls/min 07/21/18 15:45 07/21/18 16:54 Normal Saline IV 200 mls/min ASDIRECTED OLIVA Administration Sodium Chloride 500 mls @ 999 mls/hr 07/21/18 16:02 07/21/18 16:54 Normal Saline IV 07/21/18 16:32 999 mls/hr .BOLUS ONE Administration Iopamidol 75 ml 07/21/18 15:44 Isovue-300 (61%) IV 07/21/18 15:45 ONETIME ONE Iopamidol 100 ml 07/21/18 15:45 07/21/18 16:54 Isovue-300 (61%) IVPUSH 07/21/18 15:46 75 ml ONETIME ONE Administration Metronidazole 4,500 mg 07/21/18 17:45 07/21/18 18:11 Flagyl PO Not Given Q8H OLIVA Sodium Chloride 10 ml 07/21/18 22:00 07/21/18 14:40 Saline Flush FLUSH 10 ml Q8HR OLIVA Administration Departure - Departure Time of Disposition: 17:32 Disposition: Home, Self-Care 01 Condition: Good Clinical Impression: Diverticulitis large intestine Clinical Impression: (Ruled Out): Right lower quadrant abdominal pain of unknown etiology, Diverticula of colon - Discharge Information *PRESCRIPTION DRUG MONITORING PROGRAM REVIEWED*: Not Applicable *COPY OF PRESCRIPTION DRUG MONITORING REPORT IN PATIENT TESSA: Not Applicable Instructions: Diverticulitis Referrals: PCP,Unknown [Ordering Only Provider] - Forms: ED Department Discharge Additional Instructions: f/u with your primary care provider tuesday for a recheck. fill scripts at your local pharmacy first thing tuesday morning in order to have your dose ready for tuesday evening. 3 we will send you home enough cipro and flagyl antibiotics to get you through until tuesday. call us if you have any questions or concerns, we are open 30/08
[2018-07-21 15:20] LABS: ANION GAP 14.1 mmol/L (5-15); CHLORIDE,CL 103 mmol/L (98-115); SODIUM,NA 138 mmol/L (136-145)
[2018-07-21 15:40] VITALS: BP 146/85
[2018-07-21] MEDS ORDERED: Iopamidol 612 MG/ML 75 ML Bottle IV ONE (15:44)
[2018-07-21] MEDS ORDERED: Iopamidol 612 MG/ML 100 ML Bottle IVPUSH ONE (15:45)
[2018-07-21] MEDS ORDERED: Sodium Chloride 0.9% 50 ML IV SCH (15:45)
[2018-07-21] MEDS ORDERED: Sodium Chloride 0.9% 500 ML IV ONE (16:02)
--- NOTE | 2018-07-21 17:12 | CT ---
[id number] CT/CT Abdomen Pelvis W IV EXAM: CT Abdomen Pelvis W IV CLINICAL DATA: RIGHT LOWER QUADRANT ABDOMINAL PAIN. COMPARISON STUDY: 05/09/2017. FINDINGS: Moderate sliding-type hiatal hernia. Liver, spleen, pancreas, and adrenal glands are unremarkable. Mild left hydroureter, nonspecific. No hydronephrosis. No evidence of obstructing stone. Bilateral renal cysts. The gallbladder surgically absent. Colonic diverticulosis. There is subtle fat stranding surrounding multiple sigmoid diverticula in the pelvic region. Additionally there is thickening of the associated sigmoid colon. No fluid collection or free air. No free fluid. The appendix is not well-visualized consistent with patient's history of prior appendectomy. No lymphadenopathy. Scattered changes of spondylosis the spine. No fracture or osseous lesion. IMPRESSION: Findings suggestive of acute uncomplicated sigmoid diverticulitis. Aristeo Fong DO 07/21/18 4031 Thank you for allowing us to participate in the care of your patient.
[2018-07-21] MEDS ORDERED: Ciprofloxacin 500 MG Tab PO SCH (17:30)
[2018-07-21] MEDS ORDERED: metroNIDAZOLE 500 MG Tab PO SCH (17:45)
[2018-07-21] MEDS ORDERED: Ciprofloxacin 500 MG Tab PO ONE (18:05)
[2018-07-21] MEDS ORDERED: Sodium Chloride 0.9% 10 ML Syringe FLUSH SCH (22:00)
== END 2018-07-21 18:05 | disposition home or self-care (01) ==
LOC: KA.ED 14:27
DX: K57.32 Diverticulitis of large intestine without perforation or abscess without bleeding (principal); I10 Essential (primary) hypertension; K21.9 Gastro-esophageal reflux disease without esophagitis; M19.90 Unspecified osteoarthritis, unspecified site; E11.9 Type 2 diabetes mellitus without complications; Z79.899 Other long term (current) drug therapy; Z90.49 Acquired absence of other specified parts of digestive tract; Z90.710 Acquired absence of both cervix and uterus; Z98.49 Cataract extraction status, unspecified eye; Z79.82 Long term (current) use of aspirin; Z88.0 Allergy status to penicillin
CPT/HCPCS: 74177; 80053; 81001; 83690; 85025; 86140; 96360; 99284; A9270; J7030; J7050; Q9967; 99283

== ENCOUNTER 2018-07-23 18:40 | Observation (INO) | payer MEDICARE, MEDICAID ==
[2018-07-23] MEDS ORDERED: Sodium Chloride 0.9% 10 ML Syringe FLUSH PRN (18:56)
--- NOTE | 2018-07-23 19:18 | EDM.PDOC ---
ED HPI GENERAL MEDICAL PROBLEM - General Stated Complaint: LEFT LOWER QUAD. PAIN Time Seen by Provider: 07/23/18 19:00 Source of Information: Reports: Patient - History of Present Illness INITIAL COMMENTS - FREE TEXT/NARRATIVE: Patient returns via EMS for intermittent RLQ abd. pain that does not radiate. She was seen here [place] night, had normal lab work and but CT revealed acute noncomplicated diverticulitis. She was sent home with oral cipro and flagyl and has been complaint taking medications since then. She is compliant with diverticulitis diet as she stated all the types of foods/meals she avoids. Patient had a severe sharp abd. pain attack which lasted for approx. 10 minutes RLQ, than resolved on its own. Patient called EMS and was sent here. She has had BM, dark stools and hard, last one was this am. No vomiting no fevers or chills. She lives at home alone and has not fallen and feels safe. Currently her pain is 4/10. RLQ Pain Score (Numeric/FACES): 4 - Related Data Allergies Allergy/AdvReac Type Severity Reaction Status Date / Time Penicillins Allergy Cannot Verified 07/24/18 00:22 Remember Home Meds: Home Meds Aspirin 81 mg PO BRK 05/12/16 [History] Cholecalciferol (Vitamin D3) [Vitamin D3] 3,000 units PO DAILY 05/12/16 [History ] Docusate Sodium [Colace] 100 mg PO BID PRN 05/12/16 [History] L.acid/L.casei/B.bif/B.leticia/Fos [Probiotic Blend Capsule] 1 cap PO DAILY [History] Omeprazole 20 mg PO BID 05/12/16 [History] Nitroglycerin 0.4 mg SL Q5M PRN 08/24/16 [History] Acetaminophen [Tylenol] 650 mg PO Q4H PRN 07/21/18 [History] Calcium Carbonate 500 mg PO BID 07/21/18 [History] Calcium Carbonate [Calcium] 500 mg PO ASDIRECTED PRN 07/21/18 [History] Losartan Potassium 25 mg PO DAILY 07/21/18 [History] Nystatin [Nystatin Crm] 1 applic TOP TID PRN 07/21/18 [History] Simvastatin 20 mg PO BEDTIME 07/21/18 [History] Ciprofloxacin HCl [Cipro] 500 mg PO BID 07/24/18 [History] metroNIDAZOLE [Flagyl] 500 mg PO TID 07/24/18 [History] Past Medical History HEENT History: Reports: Cataract, Epistaxis, Impaired Vision Cardiovascular History: Reports: Angina, High Cholesterol, Hypertension Respiratory History: Reports: Bronchitis, Recurrent Gastrointestinal History: Reports: Diverticulosis, GERD Genitourinary History: Reports: Other (See Below) (wwww) Other Genitourinary History: prolapsed bladder 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 walker use. knee pain Endocrine/Metabolic History: Reports: Diabetes, Type II - Infectious Disease History Infectious Disease History: Reports: Chicken Pox, Mumps - Past Surgical History HEENT Surgical History: Reports: Cataract Surgery GI Surgical History: Reports: Appendectomy, Cholecystectomy, Colonoscopy Female Surgical History: Reports: Hysterectomy, Salpingo-Oophorectomy Social & Family History - Family History Family Medical History: Noncontributory - Caffeine Use Caffeine Use: Reports: Tea Other Caffeine Use: 2-3 drinks/day ED ROS GENERAL - Review of Systems Review Of Systems: See Below Constitutional: Reports: No Symptoms HEENT: Reports: No Symptoms Respiratory: Reports: No Symptoms Cardiovascular: Reports: No Symptoms Endocrine: Reports: No Symptoms GI/Abdominal: Reports: Abdominal Pain, Nausea : Reports: No Symptoms Musculoskeletal: Reports: No Symptoms Skin: Reports: No Symptoms Neurological: Reports: No Symptoms Psychiatric: Reports: No Symptoms ED EXAM, GI/ABD - Physical Exam Exam: See Below Exam Limited By: No Limitations General Appearance: Alert, WD/WN, No Apparent Distress Ears: Normal External Exam, Normal Canal Nose: Normal Inspection, Normal Mucosa Throat/Mouth: Normal Inspection, Normal Oropharynx Head: Atraumatic, Normocephalic Neck: Normal Inspection, Supple, Non-Tender, Full Range of Motion Respiratory/Chest: No Respiratory Distress, Lungs Clear, Normal Breath Sounds Cardiovascular: Normal Peripheral Pulses, Regular Rate, Rhythm, Other (Female) Exam: Deferred Rectal (Female) Exam: Normal Exam, Normal Rectal Tone Back Exam: Normal Inspection, Full Range of Motion Extremities: Normal Inspection, Normal Range of Motion, Non-Tender Neurological: Alert, Oriented, Normal Cognition Psychiatric: Normal Affect, Normal Mood Skin Exam: Warm, Dry, Intact, Other (slight redness bilateral lower extremities with+1 pitting edema) Course - Vital Signs Text/Narrative:: zofran ODT for nausea and morphine for pain, Vitals stable, no fever, Hgh dropped 1 gram since Tuesday, no leukocytosis, but has elevated neuropils on diff , lactate normal, lytes normal, renal function normal. Rectal exam neg for any hard stool in rectal vault. Stool occult negative. Patient admits it would be hard for transportation for close f/u in clinic. pain controlled with 2 mg morphine, sp o2 97% patient is resting comfortable in bed. Called photocomposition keyboard operator alexander Mcgovern to consult for admission. Last Recorded V/S: Last Vital Signs Temp 97.5 F 07/24/18 07:00 Pulse 68 07/24/18 07:00 Resp 20 07/24/18 07:00 BP 115/58 L 07/24/18 08:48 Pulse Ox 97 07/24/18 07:00 - Orders/Labs/Meds Orders: Active Orders 24 hr Category Date Time Status Peripheral IV Care [RC] . DIRECTED Care 07/23/18 18:57 Active Sodium Chloride 0.9% [Saline Flush] Med 07/23/18 18:56 Active 10 ml FLUSH Q8HR PRN Peripheral IV Insertion Adult [OM.PC] Routine Oth 07/23/18 18:56 Ordered Medication Orders Acetaminophen (Tylenol Extra Strength) 1,000 mg PO TID [facility] Last Admin: 07/24/18 08:49 Dose: 1,000 mg Aspirin (Halfprin) 81 mg PO WITHBREAKFAST [facility] Last Admin: 07/24/18 08:49 Dose: 81 mg Calcium Carbonate/Glycine (Tums) 500 mg PO BID [facility] Last Admin: 07/24/18 08:49 Dose: 500 mg Cholecalciferol (Vitamin D3) 3,000 units PO DAILY [facility] Last Admin: 07/24/18 08:49 Dose: 3,000 units Docusate Sodium (Colace) 100 mg PO BID PRN PRN Reason: Constipation Metronidazole 500 mg/ Premix 100 mls @ 100 mls/hr IV Q8H [facility] Last Admin: 07/24/18 05:50 Dose: 100 mls/hr Infusion: 07/23/18 23:39 Dose: 100 mls/hr Admin: 06/16/19 22:39 Dose: 100 mls/hr Ciprofloxacin/Dextrose 400 mg/ (Premix) 200 mls @ 200 mls/hr IV Q12H [facility] Last Admin: 07/24/18 00:56 Dose: 200 mls/hr Ketorolac Tromethamine (Toradol) 10 mg IVPUSH Q6H PRN PRN Reason: Abdominal Pain Stop: 07/28/18 21:19 Last Admin: 07/24/18 03:29 Dose: 10 mg Lactobacillus Acidophilus/Rhamnosus (Multi-Ana Plus) 1 cap PO DAILY [facility] Last Admin: 07/24/18 08:48 Dose: 1 cap Losartan Potassium (Cozaar) 25 mg PO DAILY [facility] Last Admin: 07/24/18 08:48 Dose: 25 mg Nitroglycerin (Nitrostat) 0.4 mg SL Q5M PRN PRN Reason: Chest Pain Nystatin (Nystatin Crm) 0 gm TOP TID PRN PRN Reason: Rash Omeprazole (Omeprazole) 20 mg PO BIDAC@0700,1700 [facility] Last Admin: 07/24/18 06:55 Dose: 20 mg Simvastatin (Zocor) 20 mg PO BEDTIME [facility] Sodium Chloride (Saline Flush) 10 ml FLUSH Q8HR PRN PRN Reason: keep vein open Last Admin: 07/23/18 19:42 Dose: 10 ml Labs: Laboratory Tests 07/23/18 07/23/18 07/23/18 Range/Units 19:03 19:03 19:03 WBC 6.70 (5.00-10.00) 10^3/uL RBC 3.81 (3.80-5.50) 10^6/uL Hgb 11.2 L (12.0-16.0) g/dL Hct 33.5 L (37.0-47.0) % MCV 87.9 (82.0-92.0) fL MCH 29.4 (27.0-31.0) pg MCHC 33.4 (32.0-36.0) g/dL RDW 13.8 (11.5-14.5) % Plt Count 254 (150-400) 10^3/uL MPV 9.8 (7.4-10.4) fL Immature Gran % (Auto) 0.3 (0.0-5.0) % Neut % (Auto) 76.7 H (50.0-70.0) % Lymph % (Auto) 9.9 L (20.0-40.0) % Gilchrist % (Auto) 10.3 H (2.0-8.0) % Eos % (Auto) 2.5 (1.0-3.0) % Baso % (Auto) 0.3 (0.0-1.0) % Immature Gran # (Auto) 0.02 (0.00-0.50) 10^3/uL Neut # (Auto) 5.14 (2.50-7.00) 10^3/uL Lymph # (Auto) 0.66 L (1.00-4.00) 10^3/uL Gilchrist # (Auto) 0.69 (0.10-0.80) 10^3/uL Eos # (Auto) 0.17 (0.10-0.30) 10^3/uL Baso # (Auto) 0.02 (0.00-0.10) 10^3/uL Sodium 139 (136-145) mmol/L Potassium 4.1 (3.3-5.3) mmol/L Chloride 106 (98-115) mmol/L Carbon Dioxide 24.7 (21.0-32.0) mmol/L Anion Gap 12.4 (5-15) mmol/L BUN 23 (6-25) mg/dL Creatinine 0.93 (0.51-1.17) mg/dL Est Cr Clr Drug Dosing 39.43 mL/min Estimated GFR (MDRD) 58 mL/min Glucose 105 H (75 - 99) mg/dL Lactic Acid 0.9 (0.4-2.0) mmol/L Calcium 9.5 (8.7-10.3) mg/dL C-Reactive Protein 0.5 (0.0-0.9) mg/dL Meds: Medications Generic Name Dose Route Start Last Admin Trade Name Freq PRN Reason Stop Dose Admin Acetaminophen 1,000 mg 07/24/18 09:00 07/24/18 08:49 Tylenol Extra Strength PO 1,000 mg TID OLIVA Administration Aspirin 81 mg 07/24/18 08:00 07/24/18 08:49 Halfprin PO 81 mg WITHBREAKFAST OLIVA Administration Calcium Carbonate/Glycine 500 mg 07/24/18 09:00 07/24/18 08:49 Tums PO 500 mg BID OLIVA Administration Cholecalciferol 3,000 units 07/24/18 09:00 07/24/18 08:49 Vitamin D3 PO 3,000 units DAILY OLIVA Administration Docusate Sodium 100 mg 07/23/18 22:13 Colace PO BID PRN Constipation Metronidazole 500 mg/ Premix 100 mls @ 100 mls/hr 07/23/18 21:30 07/24/18 05: 50 IV 100 mls/hr Q8H OLIVA Administration Ciprofloxacin/Dextrose 400 mg/ 200 mls @ 200 mls/hr 07/24/18 01:00 07/24/18 00:56 Premix IV 200 mls/hr Q12H OLIVA Administration Ketorolac Tromethamine 10 mg 07/23/18 21:19 07/24/18 03:29 Toradol IVPUSH 07/28/18 21:19 10 mg Q6H PRN Administration Abdominal Pain Lactobacillus Acidophilus/Rhamnosus 1 cap 07/24/18 09:00 07/24/18 08:48 Multi-Ana Plus PO 1 cap DAILY OLIVA Administration Losartan Potassium 25 mg 07/24/18 09:00 07/24/18 08:48 Cozaar PO 25 mg DAILY OLIVA Administration Nitroglycerin 0.4 mg 07/23/18 22:13 Nitrostat SL Q5M PRN Chest Pain Nystatin 0 gm 07/23/18 22:13 Nystatin Crm TOP TID PRN Rash Omeprazole 20 mg 07/24/18 07:00 07/24/18 06:55 Omeprazole PO 20 mg BIDAC@0700,1700 OLIVA Administration Simvastatin 20 mg 07/24/18 21:00 Zocor PO BEDTIME OLIVA Sodium Chloride 10 ml 07/23/18 18:56 07/23/18 19:42 Saline Flush FLUSH 10 ml Q8HR PRN Administration keep vein open Discontinued Medications Generic Name Dose Route Start Last Admin Trade Name Freq PRN Reason Stop Dose Admin Acetaminophen 0 mg 07/23/18 21:30 07/23/18 22:43 Tylenol PO 325 mg TID OLIVA Administration Sodium Chloride 1,000 mls @ 125 mls/hr 07/23/18 21:30 07/23/18 22:39 Normal Saline IV 125 mls/hr ASDIRECTED OLIVA Administration Morphine Sulfate 2 mg 07/23/18 19:30 07/23/18 19:38 Morphine IVPUSH 2 mg Q1H PRN Administration Abdominal Pain Non-Formulary Medication 500 mg 07/23/18 22:13 Calcium Carbonate [Calcium] PO ASDIRECTED PRN Indigestion Ondansetron HCl 4 mg 07/23/18 19:25 07/23/18 19:36 Zofran Odt PO 07/23/18 19:26 4 mg ONETIME ONE Administration - Radiology Interpretation CT Results Date: 07/21/18 (CT abd- acute uncomplicated sigmoid diverticulitis ) Departure - Departure Time of Disposition: 21:36 Disposition: Refer to Observation Condition: Good Clinical Impression: Diverticulitis - Discharge Information *PRESCRIPTION DRUG MONITORING PROGRAM REVIEWED*: Not Applicable *COPY OF PRESCRIPTION DRUG MONITORING REPORT IN PATIENT TESSA: Not Applicable - My Orders Last 24 Hours: My Active Orders 07/23/18 18:56 Sodium Chloride 0.9% [Saline Flush] 10 ml FLUSH Q8HR PRN Peripheral IV Insertion Adult [OM.PC] Routine 07/23/18 18:57 Peripheral IV Care [RC] . DIRECTED - Assessment/Plan Last 24 Hours: My Active Orders 07/23/18 18:56 Sodium Chloride 0.9% [Saline Flush] 10 ml FLUSH Q8HR PRN Peripheral IV Insertion Adult [OM.PC] Routine 07/23/18 18:57 Peripheral IV Care [RC] . DIRECTED
[2018-07-23] MEDS ORDERED: Ondansetron 4 MG Tab.DIS PO ONE (19:25)
[2018-07-23] MEDS ORDERED: Morphine 2 MG/ML Syringe IVPUSH PRN (19:30)
[2018-07-23 19:45] LABS: ANION GAP 12.4 mmol/L (5-15)
[2018-07-23] MEDS ORDERED: Ketorolac 30 MG/ML SDV IVPUSH PRN (21:19)
[2018-07-23] MEDS ORDERED: Acetaminophen 325 MG Tab PO SCH (21:30)
[2018-07-23] MEDS ORDERED: Ciprofloxacin in D5W 400 MG in Premix Bag 1 BAG IV SCH ×2 (21:30)
[2018-07-23] MEDS ORDERED: Sodium Chloride 0.9% 1,000 ML IV SCH (21:30)
[2018-07-23] MEDS ORDERED: Non-Formulary Medication 1 Each (Calcium Carbonate [Calcium] 500 MG) PO PRN (22:13)
[2018-07-23] MEDS ORDERED: Docusate Sodium 100 MG Cap PO PRN (22:13)
[2018-07-23] MEDS ORDERED: Nystatin Crm 15 GM Tube TOP PRN (22:13)
[2018-07-23] MEDS ORDERED: Nitroglycerin 0.4 MG Tab.SL SL PRN (22:13)
[2018-07-23] MEDS: metroNIDAZOLE/Normal Saline 500 MG in Premix Bag 1 BAG IV SCH (22:39)
[2018-07-24] MEDS: Ciprofloxacin in D5W 400 MG in Premix Bag 1 BAG IV SCH ×4 (00:56→13:59)
[2018-07-24] MEDS: metroNIDAZOLE/Normal Saline 500 MG in Premix Bag 1 BAG IV SCH ×3 (05:50→21:00)
[2018-07-24] MEDS: Omeprazole 20 MG Cap.CR PO SCH ×2 (06:55→17:34)
[2018-07-24 07:56] LABS: ANION GAP 12.6 mmol/L (5-15)
[2018-07-24] MEDS ORDERED: Aspirin 81 MG Tab.EC PO SCH (08:00)
[2018-07-24] MEDS: Losartan 25 MG Tab PO SCH (08:48)
[2018-07-24] MEDS: B.Bifidum/B.Longum/L.Acidophilus/L.Rhamnosus (Probiotic) Cap PO SCH (08:48)
[2018-07-24] MEDS: Calcium Carbonate 500 MG Tab.Chew PO SCH ×2 (08:49→20:59)
[2018-07-24] MEDS: Cholecalciferol (Vitamin D3) 1,000 Unit Tab PO SCH (08:49)
[2018-07-24] MEDS: Acetaminophen 500 MG Tab PO SCH ×3 (08:49→20:58)
--- NOTE | 2018-07-24 13:04 | PCM.HP ---
H&P History of Present Illness - General Date of Service: 07/24/18 Admit Problem/Dx: Admission Diagnosis/Problem Admission Diagnosis/Problem Diverticulitis Source of Information: Patient, Old Records, RN History Limitations: Reports: No Limitations, Other (mildly confused) - History of Present Illness Initial Comments - Free Text/Narative: Ms. Mak was apparently in her usual state of health until 07/21/13 at around 1330 when she had acute onset RLQ abdominal pain that lasted for 10 minutes. She called EMS and was transported to the [facility] ED where she was evaluated and work-up including CT revealed uncomplicated diverticulitis. VS and labs were unremarkable, so she was started on oral ciprofloxacin and metronidazole and discharged to home in good condition. She reports having been taking the antibiotics as prescribed. On the afternoon of 07/23/18, she again had some recurrent RLQ abdominal pain so called EMS to be transported back to the [facility] ED. The pain resolved on its own about 10 minutes after it began. Evaluation was notable for normal VS, unremarkable exam, and normal CBC/BMP/CRP/ LA except mildly decreased Hgb and elevated neutrophil percentage. Due to significant patient and family reluctance in returning home due to ongoing pain , she was admitted to observation status for IVF hydration, pain management, and monitoring. This morning on rounds, she states she feels much better. Has had some recurrent abdominal pain, but improved from prior. Denies any fever, chills, nausea, vomiting, diarrhea, rectal bleeding, or other acute concerns. Typically receives regular care in [place], [place], and [place], [place]. Has a hx of diverticulitis and remote hx of colonoscopy, but patient isn't able to provide details. Lives in apartment in [place], [place]. Expresses concerns regarding ability to care for herself and admits to prior falls and difficulty ambulating. Receives assistance with cleaning and meals delivered from the [facility]. Sets up her own medications. RLQ Pain Score (Numeric/FACES): 4 - Related Data Allergies/Adverse Reactions: Allergies Allergy/AdvReac Type Severity Reaction Status Date / Time Penicillins Allergy Cannot Verified 07/24/18 00:22 Remember Home Medications: Home Meds Aspirin 81 mg PO BRK 05/12/16 [History] Cholecalciferol (Vitamin D3) [Vitamin D3] 3,000 units PO DAILY 05/12/16 [History ] Docusate Sodium [Colace] 100 mg PO BID PRN 05/12/16 [History] L.acid/L.casei/B.bif/B.leticia/Fos [Probiotic Blend Capsule] 1 cap PO DAILY [History] Omeprazole 20 mg PO BID 05/12/16 [History] Nitroglycerin 0.4 mg SL Q5M PRN 08/24/16 [History] Acetaminophen [Tylenol] 650 mg PO Q4H PRN 07/21/18 [History] Calcium Carbonate 500 mg PO BID 07/21/18 [History] Calcium Carbonate [Calcium] 500 mg PO ASDIRECTED PRN 07/21/18 [History] Losartan Potassium 25 mg PO DAILY 07/21/18 [History] Nystatin [Nystatin Crm] 1 applic TOP TID PRN 07/21/18 [History] Simvastatin 20 mg PO BEDTIME 07/21/18 [History] Ciprofloxacin HCl [Cipro] 500 mg PO BID 07/24/18 [History] metroNIDAZOLE [Flagyl] 500 mg PO TID 07/24/18 [History] Past Medical History HEENT History: Reports: Cataract, Epistaxis, Impaired Vision Cardiovascular History: Reports: Angina, High Cholesterol, Hypertension Respiratory History: Reports: Bronchitis, Recurrent Gastrointestinal History: Reports: Diverticulosis, GERD Genitourinary History: Reports: Other (See Below) (wwww) Other Genitourinary History: prolapsed bladder TABLE KEEPER History: Reports: Musculoskeletal History: Reports: Osteoarthritis, Other (See Below) Other Musculoskeletal History: L shoulder ?torn cuff. walker use. knee pain Neurological History: Reports: None Psychiatric History: Reports: None Endocrine/Metabolic History: Reports: Diabetes, Type II Hematologic History: Reports: None Immunologic History: Reports: None Oncologic (Cancer) History: Reports: None Dermatologic History: Reports: None - Infectious Disease History Infectious Disease History: Reports: Chicken Pox, Mumps - Past Surgical History HEENT Surgical History: Reports: Cataract Surgery GI Surgical History: Reports: Appendectomy, Cholecystectomy, Colonoscopy Female Surgical History: Reports: Hysterectomy, Salpingo-Oophorectomy Social & Family History - Family History Family Medical History: Noncontributory Cardiac: Reports: Hypertension - Tobacco Use Smoking Status *Q: Never Smoker - Caffeine Use Caffeine Use: Reports: Tea Other Caffeine Use: 2-3 drinks/day - Recreational Drug Use Recreational Drug Use: No H&P Review of Systems - Review of Systems: Review Of Systems: See Below General: Reports: Weakness, Decreased Appetite. Denies: Fever, Chills HEENT: Denies: Ear Pain, Headaches, Rhinitis Pulmonary: Denies: Shortness of Breath, Wheezing, Cough Cardiovascular: Reports: Edema. Denies: Chest Pain, Palpitations Gastrointestinal: Reports: Abdominal Pain, Decreased Appetite. Denies: Black Stool, Bloody Stool, Constipation, Diarrhea, Difficulty Swallowing, Nausea, Vomiting Genitourinary: Denies: Dysuria, Frequency, Burning, Pain Psychiatric: Reports: Confusion. Denies: Depression, Anxiety Neurological: Reports: Difficulty Walking. Denies: Headache, Numbness, Syncope Exam - Exam Exam: See Below - Vital Signs Vital Signs: Last Vital Signs Temp 36.4 C 07/24/18 07:00 Pulse 68 07/24/18 07:00 Resp 20 07/24/18 07:00 BP 115/58 L 07/24/18 08:48 Pulse Ox 97 07/24/18 07:00 Weight: 78.018 kg - Exam Physical Exam Comments:: GENERAL: Well-appearing elderly white female sitting in bedside chair in no acute distress. HEENT: NC/AT. Conjunctiva clear. Nares patent. Mucous membranes moist, posterior pharynx unremarkable. NECK: Supple, no masses. CV: Regular rate and rhythm, no murmurs, rubs, or gallops. 2+ radial pulses. PULMONARY: Normal effort, clear to auscultation bilaterally, no wheezes, rales, or rhonchi. ABDOMEN: Positive bowel sounds in all 4 quadrants, soft, mild tenderness to deep palpation in RLQ, no guarding/rigidity/rebound. EXTREMITIES: No edema, cyanosis, or clubbing. MUSCULOSKELETAL: Moves all extremities well. NEUROLOGICAL: No deficits. DERMATOLOGIC: No rashes or suspicious lesions in exposed areas. PSYCHIATRIC: Alert, interactive, appropriate affect, notably confused at times during encounter. - Patient Data Lab Results Last 24 hrs: Laboratory Results - last 24 hr 07/23/18 07/23/18 07/23/18 Range/Units 19:03 19:03 19:03 WBC 6.70 (5.00-10.00) 10^3/uL RBC 3.81 (3.80-5.50) 10^6/uL Hgb 11.2 L (12.0-16.0) g/dL Hct 33.5 L (37.0-47.0) % MCV 87.9 (82.0-92.0) fL MCH 29.4 (27.0-31.0) pg MCHC 33.4 (32.0-36.0) g/dL RDW 13.8 (11.5-14.5) % Plt Count 254 (150-400) 10^3/uL MPV 9.8 (7.4-10.4) fL Immature Gran % (Auto) 0.3 (0.0-5.0) % Neut % (Auto) 76.7 H (50.0-70.0) % Lymph % (Auto) 9.9 L (20.0-40.0) % [place] % (Auto) 10.3 H (2.0-8.0) % Eos % (Auto) 2.5 (1.0-3.0) % Baso % (Auto) 0.3 (0.0-1.0) % Immature Gran # (Auto) 0.02 (0.00-0.50) 10^3/uL Neut # (Auto) 5.14 (2.50-7.00) 10^3/uL Lymph # (Auto) 0.66 L (1.00-4.00) 10^3/uL [place] # (Auto) 0.69 (0.10-0.80) 10^3/uL Eos # (Auto) 0.17 (0.10-0.30) 10^3/uL Baso # (Auto) 0.02 (0.00-0.10) 10^3/uL Sodium 139 (136-145) mmol/L Potassium 4.1 (3.3-5.3) mmol/L Chloride 106 (98-115) mmol/L Carbon Dioxide 24.7 (21.0-32.0) mmol/L Anion Gap 12.4 (5-15) mmol/L BUN 23 (6-25) mg/dL Creatinine 0.93 (0.51-1.17) mg/dL Est Cr Clr Drug Dosing 39.43 mL/min Estimated GFR (MDRD) 58 mL/min Glucose 105 H (75 - 99) mg/dL Lactic Acid 0.9 (0.4-2.0) mmol/L Calcium 9.5 (8.7-10.3) mg/dL Total Bilirubin (0.2-1.0) mg/dL AST (15-37) U/L ALT (12-78) U/L Alkaline Phosphatase (46-116) IU/L C-Reactive Protein 0.5 (0.0-0.9) mg/dL Total Protein (6.4-8.2) g/dL Albumin (3.00-4.80) g/dL 07/24/18 07/24/18 Range/Units 07:20 07:20 WBC 4.90 L (5.00-10.00) 10^3/uL RBC 3.56 L (3.80-5.50) 10^6/uL Hgb 10.3 L (12.0-16.0) g/dL Hct 32.1 L (37.0-47.0) % MCV 90.2 (82.0-92.0) fL MCH 28.9 (27.0-31.0) pg MCHC 32.1 (32.0-36.0) g/dL RDW 14.0 (11.5-14.5) % Plt Count 213 (150-400) 10^3/uL MPV 9.8 (7.4-10.4) fL Immature Gran % (Auto) 0.2 (0.0-5.0) % Neut % (Auto) 66.5 (50.0-70.0) % Lymph % (Auto) 14.1 L (20.0-40.0) % [place] % (Auto) 13.7 H (2.0-8.0) % Eos % (Auto) 5.1 H (1.0-3.0) % Baso % (Auto) 0.4 (0.0-1.0) % Immature Gran # (Auto) 0.01 (0.00-0.50) 10^3/uL Neut # (Auto) 3.26 (2.50-7.00) 10^3/uL Lymph # (Auto) 0.69 L (1.00-4.00) 10^3/uL [place] # (Auto) 0.67 (0.10-0.80) 10^3/uL Eos # (Auto) 0.25 (0.10-0.30) 10^3/uL Baso # (Auto) 0.02 (0.00-0.10) 10^3/uL Sodium 141 (136-145) mmol/L Potassium 3.9 (3.3-5.3) mmol/L Chloride 107 (98-115) mmol/L Carbon Dioxide 25.3 (21.0-32.0) mmol/L Anion Gap 12.6 (5-15) mmol/L BUN 19 (6-25) mg/dL Creatinine 0.95 (0.51-1.17) mg/dL Est Cr Clr Drug Dosing 38.60 mL/min Estimated GFR (MDRD) 57 mL/min Glucose 87 (75 - 99) mg/dL Lactic Acid (0.4-2.0) mmol/L Calcium 8.7 (8.7-10.3) mg/dL Total Bilirubin 0.2 (0.2-1.0) mg/dL AST 15 (15-37) U/L ALT 14 (12-78) U/L Alkaline Phosphatase 86 (46-116) IU/L C-Reactive Protein (0.0-0.9) mg/dL Total Protein 5.8 L (6.4-8.2) g/dL Albumin 2.72 L (3.00-4.80) g/dL Result Diagrams: 07/24/18 07:20 07/24/18 07:20 Steven Results Last 24 hrs: Microbiology 07/23/18 19:30 Stool Occult Blood (STEVEN) - Final Stool / Feces NEGATIVE OCCULT BLOOD REFERENCE RANGE: NEGATIVE Problem List Initiated/Reviewed/Updated: Yes Orders Last 24hrs: Active Orders 24 hr Category Date Time Status Patient Status [ADT] Routine ADT 07/23/18 21:15 Ordered Activity as Tolerated [RC] .Routine Care 07/23/18 22:28 Active Peripheral IV Care [RC] . DIRECTED Care 07/23/18 18:57 Active Vital Signs [RC] 0700,1500,2300 Care 07/24/18 02:36 Active Low Fiber Diet [DIET] Diet 07/24/18 Breakfast Active Acetaminophen [Tylenol Extra Strength] Med 07/24/18 09:00 Active 1,000 mg PO TID Aspirin [Halfprin] Med 07/24/18 08:00 Active 81 mg PO WITHBREAKFAST B.Bif/B.Long/L.Acidoph/L.Rhamn [Multi-Ana Plus] Med 07/24/18 09:00 Active 1 cap PO DAILY Calcium Carbonate [Tums] Med 07/24/18 09:00 Active 500 mg PO BID Cholecalciferol (Vitamin D3) [Vitamin D3] Med 07/24/18 09:00 Active 3,000 units PO DAILY Ciprofloxacin in D5W [Cipro in D5W 400 MG/200 ML] 400 Med 07/24/18 01:00 Active mg Premix Bag 1 bag IV Q12H Docusate Sodium [Colace] Med 07/23/18 22:13 Active 100 mg PO BID PRN Ketorolac [Toradol] Med 07/23/18 21:19 Active 10 mg IVPUSH Q6H PRN Losartan [Cozaar] Med 07/24/18 09:00 Active 25 mg PO DAILY Nitroglycerin [Nitrostat] Med 07/23/18 22:13 Active 0.4 mg SL Q5M PRN Nystatin [Nystatin Crm] Med 07/23/18 22:13 Active 0 gm TOP TID PRN Omeprazole Med 07/24/18 07:00 Active 20 mg PO BIDAC@0700,1700 Simvastatin [Zocor] Med 07/24/18 21:00 Active 20 mg PO BEDTIME Sodium Chloride 0.9% [Saline Flush] Med 07/23/18 18:56 Active 10 ml FLUSH Q8HR PRN metroNIDAZOLE/Normal Saline [Flagyl 500 MG in NS 100 ML Med 07/23/18 21:30 Active ] 500 mg Premix Bag 1 bag IV Q8H Peripheral IV Insertion Adult [OM.PC] Routine Oth 07/23/18 18:56 Ordered Code Status [Resuscitation Status] Routine Resus Stat 07/24/18 00:22 Ordered Medication Orders Acetaminophen (Tylenol Extra Strength) 1,000 mg PO TID [facility] Last Admin: 07/24/18 08:49 Dose: 1,000 mg Aspirin (Halfprin) 81 mg PO WITHBREAKFAST [facility] Last Admin: 07/24/18 08:49 Dose: 81 mg Calcium Carbonate/Glycine (Tums) 500 mg PO BID [facility] Last Admin: 07/24/18 08:49 Dose: 500 mg Cholecalciferol (Vitamin D3) 3,000 units PO DAILY [facility] Last Admin: 07/24/18 08:49 Dose: 3,000 units Docusate Sodium (Colace) 100 mg PO BID PRN PRN Reason: Constipation Metronidazole 500 mg/ Premix 100 mls @ 100 mls/hr IV Q8H [facility] Last Admin: 07/24/18 05:50 Dose: 100 mls/hr Infusion: 07/23/18 23:39 Dose: 100 mls/hr Admin: 07/23/18 22:39 Dose: 100 mls/hr Ciprofloxacin/Dextrose 400 mg/ (Premix) 200 mls @ 200 mls/hr IV Q12H [facility] Last Admin: 07/24/18 00:56 Dose: 200 mls/hr Ketorolac Tromethamine (Toradol) 10 mg IVPUSH Q6H PRN PRN Reason: Abdominal Pain Stop: 07/28/18 21:19 Last Admin: 07/24/18 03:29 Dose: 10 mg Lactobacillus Acidophilus/Rhamnosus (Multi-Ana Plus) 1 cap PO DAILY [facility] Last Admin: 07/24/18 08:48 Dose: 1 cap Losartan Potassium (Cozaar) 25 mg PO DAILY [facility] Last Admin: 07/24/18 08:48 Dose: 25 mg Nitroglycerin (Nitrostat) 0.4 mg SL Q5M PRN PRN Reason: Chest Pain Nystatin (Nystatin Crm) 0 gm TOP TID PRN PRN Reason: Rash Omeprazole (Omeprazole) 20 mg PO BIDAC@0700,1700 [facility] Last Admin: 07/24/18 06:55 Dose: 20 mg Simvastatin (Zocor) 20 mg PO BEDTIME [facility] Sodium Chloride (Saline Flush) 10 ml FLUSH Q8HR PRN PRN Reason: keep vein open Last Admin: 07/23/18 19:42 Dose: 10 ml Assessment/Plan Comment:: HPI summary/ED course: Ms. Mak is a 77yoF with a reported hx of diverticulosis and prior diverticulitis who was apparently in her usual state of health until 07/21/13 at around 1330 when she had acute onset RLQ abdominal pain that lasted for 10 minutes. She called EMS and was transported to the [facility] ED where she was evaluated and work-up including CT revealed uncomplicated diverticulitis. VS and labs were unremarkable, so she was started on oral ciprofloxacin and metronidazole and discharged to home in good condition. She reports having been taking the antibiotics as prescribed. On the afternoon of 07/23/18, she again had some recurrent RLQ abdominal pain so called EMS to be transported back to the [facility] ED. The pain resolved on its own about 10 minutes after it began. Evaluation was notable for normal VS, unremarkable exam, and normal CBC/BMP/CRP/ LA except mildly decreased Hgb and elevated neutrophil percentage. Due to significant patient and family reluctance in returning home due to ongoing pain , she was admitted to observation status for IVF hydration, pain management, and monitoring. Hospitalization problems and plan: # Diverticulitis: Uncomplicated. Clinical status improved with IVF and pain management. - Cipro and Flagyl - Scheduled Tylenol and as needed Toradol - SLIV and encourage po intake # Deconditioning # Self care deficit - Consult physical therapy and social media marketing specialist for discharge care planning Chronic, stable conditions: # HTN: Losartan. # GERD: Omeprazole. # HLD: Simvastatin. # Vitamin D deficiency: Supplementation. Hospitalization details: # FEN: SLIV. Electrolytes normal 07/24 AM. Low fiber diet. # PPX: SCDs and ambulation for DVT ppx. # Code status: FULL. # Emergency contact: Son, who was updated by staff. # Disposition: Admit to observation status. Anticipate possible discharge to [facility] or SNF pending physical therapy and social media marketing specialist evaluations.
[2018-07-24] MEDS ORDERED: Sodium Chloride 0.9% 250 ML IV SCH (14:15)
[2018-07-24] MEDS ORDERED: Simvastatin 20 MG Tab PO SCH (21:00)
[2018-07-24] MEDS ORDERED: Aluminum Hydroxide/Magnesium Hydroxide/Simethicone Susp 30 ML Cup PO PRN (22:20)
[2018-07-25] MEDS: Ciprofloxacin in D5W 400 MG in Premix Bag 1 BAG IV SCH ×2 (00:31)
[2018-07-25] MEDS: metroNIDAZOLE/Normal Saline 500 MG in Premix Bag 1 BAG IV SCH (04:41)
[2018-07-25] MEDS: Omeprazole 20 MG Cap.CR PO SCH (06:00)
[2018-07-25 06:21] VITALS: BP 136/74
[2018-07-25] MEDS: B.Bifidum/B.Longum/L.Acidophilus/L.Rhamnosus (Probiotic) Cap PO SCH (08:09)
[2018-07-25] MEDS: Losartan 25 MG Tab PO SCH (08:09)
[2018-07-25] MEDS: Cholecalciferol (Vitamin D3) 1,000 Unit Tab PO SCH (08:10)
[2018-07-25] MEDS: Acetaminophen 500 MG Tab PO SCH (08:10)
[2018-07-25] MEDS: Calcium Carbonate 500 MG Tab.Chew PO SCH (08:10)
--- NOTE | 2018-07-25 11:15 | PCM.DCSUM1 ---
Discharge Summary - Hospital Course Free Text/Narrative:: Date of admission: 07/23/18 Date of discharge: 07/25/18 Admission diagnoses: # Diverticulitis # Deconditioning # Self care deficit # HTN # GERD # HLD # Vitamin D deficiency Discharge diagnoses: # Diverticulitis # Deconditioning # Self care deficit # HTN # GERD # HLD # Vitamin D deficiency Consultations: Physical therapy Case management/social worker delinquency prevention Hospital course: Ms. Mak is a 77yoF with a reported hx of diverticulosis and prior diverticulitis who was apparently in her usual state of health until 07/21/13 at around 1330 when she had acute onset RLQ abdominal pain that lasted for 10 minutes. She called EMS and was transported to the [facility] ED where she was evaluated and work-up including CT revealed uncomplicated diverticulitis. VS and labs were unremarkable, so she was started on oral ciprofloxacin and metronidazole and discharged to home in good condition. She reports having been taking the antibiotics as prescribed. On the afternoon of 07/23/18, she again had some recurrent RLQ abdominal pain so called EMS to be transported back to the [facility] ED. The pain resolved on its own about 10 minutes after it began. Evaluation was notable for normal VS, unremarkable exam, and normal CBC/BMP/CRP/ LA except mildly decreased Hgb and elevated neutrophil percentage. Due to significant patient and family reluctance in returning home due to ongoing pain , she was admitted to observation status for IVF hydration, pain management, and monitoring. She had clinical status improvement with IVF and pain management with scheduled Tylenol and as needed Toradol. Was continued on Cipro/Flagyl. Physical therapy was consulted and recommended ongoing physical and occupational therapy in SNF setting. Case management/social worker delinquency prevention was consulted and coordinated with patient and family with agreement and placement at [facility]. She was continued on her other outpatient medications and didn't have any other concerns arise during her stay. Discharge and follow-up recommendations: - Discharge to [facility] in [place], [place] with physical and occupational therapy - New medications at discharge: None - Follow-up with facility medical provider on next jail rounds - Discharge Data Discharge Date: 07/25/18 Discharge Disposition: DC/Tfer to [facility] 03 Condition: Good - Patient Summary/Data Consults: Consultations 07/24/18 13:04 Consult to Physical Therapy [PT Evaluation and Treatment] [CONS] Routine - Patient Instructions Diet: GI Soft/Low Residue/Low Fiber Activity: As Tolerated Showering/Bathing: May Shower Notify Provider of: Fever, Increased Pain, Swelling and Redness, Nausea and/or Vomiting - Discharge Plan *PRESCRIPTION DRUG MONITORING PROGRAM REVIEWED*: Not Applicable *COPY OF PRESCRIPTION DRUG MONITORING REPORT IN PATIENT [place]: Not Applicable Home Medications: Home Meds Cholecalciferol (Vitamin D3) [Vitamin D3] 3,000 units PO DAILY 05/12/16 [History ] Docusate Sodium [Colace] 100 mg PO BID PRN 05/12/16 [History] L.acid/L.casei/B.bif/B.leticia/Fos [Probiotic Blend Capsule] 1 cap PO DAILY [History] Omeprazole 20 mg PO BID 05/12/16 [History] Acetaminophen [Tylenol] 650 mg PO Q4H PRN 07/21/18 [History] Calcium Carbonate [Calcium] 500 mg PO ASDIRECTED PRN 07/21/18 [History] Losartan Potassium 25 mg PO DAILY 07/21/18 [History] Nystatin [Nystatin Crm] 1 applic TOP TID PRN 07/21/18 [History] Simvastatin 20 mg PO BEDTIME 07/21/18 [History] Alum Hydrox/Mag Hydrox/Simeth [Mag-Al Plus] 30 ml PO QID PRN cup 07/25/18 [Rx] Ciprofloxacin HCl [Cipro] 500 mg PO BID 6 Days #0 07/25/18 [Rx] metroNIDAZOLE [Flagyl] 500 mg PO TID 6 Days #0 07/25/18 [Rx] Referrals: PCP,Unknown [Ordering Only Provider] - (Follow-up with PCP at [facility] on next rounds) - Discharge Summary/Plan Comment DC Time >30 min.: Yes - General Info Subjective Update: Ms. Mak reports ongoing clinical improvement in abdominal pain and po intake. Denies any fever, chills, nausea, vomiting, diarrhea, rectal bleeding, or other concerns. Agreeable to discharge to SNF as planned. - Patient Data Vitals - Most Recent: Last Vital Signs Temp 36.7 C 07/25/18 06:20 Pulse 75 07/25/18 06:20 Resp 18 07/25/18 06:20 BP 136/74 07/25/18 08:09 Pulse Ox 96 07/25/18 06:20 Weight - Most Recent: 78.018 kg I&O - Last 24 hours: Intake & Output 07/24/18 07/25/18 07/25/18 22:59 06:59 14:59 Intake Total 360 550 Balance 360 550 Lab Results - Last 24 hrs: Laboratory Results - last 24 hr 07/25/18 Range/Units 07:29 WBC 4.89 L (5.00-10.00) 10^3/uL RBC 3.84 (3.80-5.50) 10^6/uL Hgb 11.2 L (12.0-16.0) g/dL Hct 34.6 L (37.0-47.0) % MCV 90.1 (82.0-92.0) fL MCH 29.2 (27.0-31.0) pg MCHC 32.4 (32.0-36.0) g/dL RDW 14.1 (11.5-14.5) % Plt Count 243 (150-400) 10^3/uL MPV 10.1 (7.4-10.4) fL Immature Gran % (Auto) 0.4 (0.0-5.0) % Neut % (Auto) 70.3 H (50.0-70.0) % Lymph % (Auto) 12.3 L (20.0-40.0) % [place] % (Auto) 11.5 H (2.0-8.0) % Eos % (Auto) 5.3 H (1.0-3.0) % Baso % (Auto) 0.2 (0.0-1.0) % Immature Gran # (Auto) 0.02 (0.00-0.50) 10^3/uL Neut # (Auto) 3.44 (2.50-7.00) 10^3/uL Lymph # (Auto) 0.60 L (1.00-4.00) 10^3/uL [place] # (Auto) 0.56 (0.10-0.80) 10^3/uL Eos # (Auto) 0.26 (0.10-0.30) 10^3/uL Baso # (Auto) 0.01 (0.00-0.10) 10^3/uL Med Orders - Current: Current Medications Acetaminophen (Tylenol Extra Strength) 1,000 mg PO TID [facility] Last Admin: 07/25/18 08:10 Dose: 1,000 mg Al Hydroxide/Mg Hydroxide (Mag-Al Plus) 30 ml PO QID PRN PRN Reason: Heartburn Last Admin: 07/24/18 23:16 Dose: 30 ml Calcium Carbonate/Glycine (Tums) 500 mg PO BID [facility] Last Admin: 07/25/18 08:10 Dose: 500 mg Cholecalciferol (Vitamin D3) 3,000 units PO DAILY [facility] Last Admin: 07/25/18 08:10 Dose: 3,000 units Docusate Sodium (Colace) 100 mg PO BID PRN PRN Reason: Constipation Metronidazole 500 mg/ Premix 100 mls @ 100 mls/hr IV Q8H [facility] Last Admin: 07/25/18 04:41 Dose: 100 mls/hr Ciprofloxacin/Dextrose 400 mg/ (Premix) 200 mls @ 200 mls/hr IV Q12H [facility] Last Admin: 07/25/18 00:31 Dose: 200 mls/hr Sodium Chloride (Normal Saline) 250 mls @ 50 mls/hr IV ASDIRECTED [facility] Last Admin: 07/24/18 14:30 Dose: 50 mls/hr Ketorolac Tromethamine (Toradol) 10 mg IVPUSH Q6H PRN PRN Reason: Abdominal Pain Stop: 07/28/18 21:19 Last Admin: 07/24/18 03:29 Dose: 10 mg Lactobacillus Acidophilus/Rhamnosus (Multi-Ana Plus) 1 cap PO DAILY [facility] Last Admin: 07/25/18 08:09 Dose: 1 cap Losartan Potassium (Cozaar) 25 mg PO DAILY [facility] Last Admin: 07/25/18 08:09 Dose: 25 mg Nystatin (Nystatin Crm) 0 gm TOP TID PRN PRN Reason: Rash Omeprazole (Omeprazole) 20 mg PO BIDAC@0700,1700 [facility] Last Admin: 07/25/18 06:00 Dose: 20 mg Simvastatin (Zocor) 20 mg PO BEDTIME [facility] Last Admin: 07/24/18 20:59 Dose: 20 mg Sodium Chloride (Saline Flush) 10 ml FLUSH Q8HR PRN PRN Reason: keep vein open Last Admin: 07/23/18 19:42 Dose: 10 ml Discontinued Medications Acetaminophen (Tylenol) 0 mg PO TID [facility] Last Admin: 07/23/18 22:43 Dose: 325 mg Aspirin (Halfprin) 81 mg PO WITHBREAKFAST [facility] Last Admin: 07/24/18 08:49 Dose: 81 mg Sodium Chloride (Normal Saline) 1,000 mls @ 125 mls/hr IV ASDIRECTED [facility] Last Admin: 07/23/18 22:39 Dose: 125 mls/hr Morphine Sulfate (Morphine) 2 mg IVPUSH Q1H PRN PRN Reason: Abdominal Pain Last Admin: 07/23/18 19:38 Dose: 2 mg Nitroglycerin (Nitrostat) 0.4 mg SL Q5M PRN PRN Reason: Chest Pain Non-Formulary Medication (Calcium Carbonate [Calcium]) 500 mg PO ASDIRECTED PRN PRN Reason: Indigestion Ondansetron HCl (Zofran Odt) 4 mg PO ONETIME ONE Stop: 07/23/18 19:26 Last Admin: 07/23/18 19:36 Dose: 4 mg - Exam Physical Findings Comments:: GENERAL: Well-appearing elderly white female sitting in bedside chair in no acute distress. HEENT: NC/AT. Conjunctiva clear. Nares patent. Mucous membranes moist, posterior pharynx unremarkable. NECK: Supple, no masses. CV: Regular rate and rhythm, no murmurs, rubs, or gallops. 2+ radial pulses. PULMONARY: Normal effort, clear to auscultation bilaterally, no wheezes, rales, or rhonchi. ABDOMEN: Positive bowel sounds in all 4 quadrants, soft, nontender, no guarding/ rigidity/rebound. EXTREMITIES: No edema, cyanosis, or clubbing. MUSCULOSKELETAL: Moves all extremities well. NEUROLOGICAL: No deficits. DERMATOLOGIC: No rashes or suspicious lesions in exposed areas. PSYCHIATRIC: Alert, interactive, appropriate affect, notably confused at times during encounter.
== END 2018-07-25 12:35 ==
LOC: KA.ED 18:40 → KA.MS 21:15
PROVIDERS: ADMIT Nurse Practitioner Family; ATTEND Family Medicine
DX: K57.92 Diverticulitis of intestine, part unspecified, without perforation or abscess without bleeding (principal); K21.9 Gastro-esophageal reflux disease without esophagitis; I10 Essential (primary) hypertension; E78.5 Hyperlipidemia, unspecified; E11.9 Type 2 diabetes mellitus without complications; I20.9 Angina pectoris, unspecified; E78.00 Pure hypercholesterolemia, unspecified; Z88.0 Allergy status to penicillin; M19.90 Unspecified osteoarthritis, unspecified site; Z79.82 Long term (current) use of aspirin; Z79.899 Other long term (current) drug therapy; Z98.890 Other specified postprocedural states
CPT/HCPCS: 36415; 80048; 80053; 82272; 83605; 85025; 86140; 96365; 96366; 96367; 96374; 96375; 97162-GP; 99284; 99285-25; A4217; A9270-GY; G0378; J0744; J1885; J2270; J3490; J7030; J7050